=== PATIENT | female | born 1990 | race Caucasian/White ===

== ENCOUNTER 2020-02-06 16:29 | Outpatient (REF) | payer OTHER, SELFPAY ==
[2020-02-06 17:45] LABS: COVID-19 Test Negative (Negative)
== END 2020-02-06 16:30 | disposition home or self-care (01) ==
LOC: HO.LAB 16:29
PROVIDERS: Visit Provider Internal Medicine
DX: Z20.828 Contact with and (suspected) exposure to other viral communicable diseases (principal)
CPT/HCPCS: 87635

== ENCOUNTER 2020-03-09 13:51 | Outpatient (REF) | payer OTHER, SELFPAY ==
[2020-03-09 14:35] LABS: COVID-19 Test Negative (Negative); IDNOW Serial# 55D5AD1C
== END 2020-03-09 13:52 | disposition home or self-care (01) ==
LOC: HO.EMPCOV 13:51
PROVIDERS: Visit Provider Internal Medicine
DX: Z20.828 Contact with and (suspected) exposure to other viral communicable diseases (principal)
CPT/HCPCS: 87635; C9803

== ENCOUNTER 2020-03-17 07:46 | Outpatient (REF) | payer OTHER, SELFPAY ==
[2020-03-17 08:18] LABS: COVID-19 Test Negative (Negative)
== END 2020-03-17 07:47 | disposition home or self-care (01) ==
LOC: HO.LAB 07:46
PROVIDERS: Visit Provider Internal Medicine
DX: Z20.828 Contact with and (suspected) exposure to other viral communicable diseases (principal)
CPT/HCPCS: 87635; C9803

== ENCOUNTER 2020-07-16 09:44 | Outpatient (REF) | payer OTHER, SELFPAY ==
[2020-07-16 10:23] LABS: COVID-19 Test Negative (Negative); IDNOW Serial# 08D9AD1C
== END 2020-07-16 09:45 | disposition home or self-care (01) ==
LOC: HO.EMPCOV 09:44
PROVIDERS: Visit Provider Internal Medicine
DX: Z20.822 Contact with and (suspected) exposure to COVID-19 (principal)
CPT/HCPCS: 36415; 87635; C9803

== ENCOUNTER 2021-02-24 09:44 | Outpatient (REF) | payer OTHER, SELFPAY ==
[2021-02-24 11:43] LABS: Baso%MD 0.2 %; Eos%MD 1.5 %; Hematocrit 45.1 % (37.0-47.0); Hemoglobin 15.4 g/dl (12.0-16.0); IG%MD 0.2 %; Mean Corpuscular HGB Conc 34.1 g/dl (31.0-35.0); Mean Corpuscular Hemoglobin 31.6 pg (27.0-33.0); Mean Corpuscular Volume 92.4 fL (80.0-98.0); Mean Platelet Volume 9.5 fL (9.4-12.3); Mono%MD 9.3 %; Neut%MD 62.8 %; Platelet Count 302 X10*3/uL (160-400); Red Blood Count 4.88 X10*6/uL (4.20-5.50); Red Cell Distribution Width 12.3 % (11.0-16.0); White Blood Count 5.3 X10*3/uL (4.8-10.8)
[2021-02-24 12:17] LABS: HBS Num1 140.53 mIU/mL (0-7.99); HBc Num1 0.08 S/CO (0.00-0.79); Hepatitis B Core Antibody Nonreactive (Nonreactive); ~Hepatitis B Surface Antibody REACTIVE (Nonreactive)
[2021-02-24 12:23] LABS: HBsAGNum1 0.18 S/CO (0.00-0.99); Hepatitis A Antibody IgM 0.11 Index (0-0.79); Hepatitis B Surface Antigen Negative (Negative); ~HepC Num1 0.08 S/CO (0.00-0.79); ~Hepatitis A Antibody IgM Nonreactive (Nonreactive); ~Hepatitis C Antibody Nonreactive (Nonreactive)
[2021-02-24 12:24] LABS: Alanine Aminotransferase 124 U/L (0-31); Albumin Level 4.7 g/dL (3.5-5.0); Alkaline Phosphatase 86 U/L (39-117); Anion Gap 14 (12-20); Aspartate Amino Transferase 128 U/L (5-31); Band Neutrophils Percent 2 % (3-5); Basophils Abs Manual 0.1 X10*3/uL (0.0-0.2); Basophils Percent Manual 1 % (0-2); Bilirubin Total 0.4 mg/dL (0.0-1.0); Blood Urea Nitrogen 12 mg/dL (9-16); Calcium 9.4 mg/dL (8.4-10.2); Carbon Dioxide 23 mmol/L (22-29); Chloride 105 mmol/L (96-108); Eosinophils Absolute Manual 0.1 X10*3/uL (0.0-0.4); Eosinophils Percent Manual 1 % (0-4); Estimated Glomerular Filt Rate 57; Glucose Random 88 mg/dL (60-115); Lymphocytes Absolute Manual 1.1 X10*3/uL (1.2-4.9); Lymphocytes Percent Manual 21 % (20-40); Monocytes Absolute Manual 0.4 X10*3/uL (0.1-1.2); Monocytes Percent Manual 8 % (2-11); Neutrophils Absolute Manual 3.7 X10*3/uL (2.0-8.3); Neutrophils Percent Manual 67 % (45-73); Potassium 4.3 mmol/L (3.3-5.1); Sodium 138 mmol/L (135-145)
[2021-02-24 12:25] LABS: Platelet Estimate NORMAL (NORMAL); Platelet Morphology Comment NORMAL; RBC Morphology NORMAL
[2021-02-24 15:01] LABS: CDiff Gene PCR NEGATIVE (Negative)
== END 2021-02-24 09:45 | disposition home or self-care (01) ==
LOC: HO.HMGCLDS 09:44
PROVIDERS: PCP Internal Medicine; Visit Provider Physician Assistant Medical
DX: R19.7 Diarrhea, unspecified (principal); Z20.822 Contact with and (suspected) exposure to COVID-19
CPT/HCPCS: 36415; 80053; 85007; 85027; 86704; 86706; 86709; 86803; 87045; 87046; 87329; 87340; 87493

== ENCOUNTER 2021-06-11 20:15 | Emergency (ER) | payer OTHER, SELFPAY ==
[2021-06-11 20:19] VITALS: BP 134/84; PULSE 87; RESP 16; TEMP 36.7; O2SAT 99; BMI 25.0
[2021-06-11 20:46] LABS: Basophils Absolute Auto 0.1 X10*3/uL (0.0-0.2); Basophils Percent Auto 0.5 % (0-2); Eosinophils Absolute Auto 0.3 X10*3/uL (0.0-0.4); Eosinophils Percent Auto 2.9 % (0-4); Hematocrit 36.8 % (37.0-47.0); Hemoglobin 12.8 g/dl (12.0-16.0); Imm Gran Abs Auto 0.02 X10*3/uL (0.00-0.03); Imm Gran Pct Auto 0.2 % (0.0-0.4); Lymphocytes Absolute Auto 2.6 X10*3/uL (1.2-4.9); Lymphocytes Percent Auto 27.2 % (20-40); MANUAL DIFF FLAG NO; Mean Corpuscular HGB Conc 34.8 g/dl (31.0-35.0); Mean Corpuscular Hemoglobin 32.3 pg (27.0-33.0); Mean Corpuscular Volume 92.9 fL (80.0-98.0); Mean Platelet Volume 8.9 fL (9.4-12.3); Monocytes Absolute Auto 0.7 X10*3/uL (0.1-1.2); Monocytes Percent Auto 7.2 % (2-11); Neutrophils Absolute Auto 5.9 x10*3/uL (2.0-8.3); Platelet Count 289 X10*3/uL (160-400); Red Blood Count 3.96 X10*6/uL (4.20-5.50); Red Cell Distribution Width 11.9 % (11.0-16.0); White Blood Count 9.5 X10*3/uL (4.8-10.8)
[2021-06-11 21:04] LABS: Anion Gap 13 (12-20); Blood Urea Nitrogen 11 mg/dL (9-16); Calcium 9.5 mg/dL (8.4-10.2); Carbon Dioxide 24 mmol/L (22-29); Chloride 104 mmol/L (96-108); Creatinine Clr Calc Pharmacy 99.4; Estimated Glomerular Filt Rate > 60; Glucose Random 95 mg/dL (60-115); Potassium 3.6 mmol/L (3.3-5.1); Sodium 137 mmol/L (135-145)
[2021-06-11 21:37] LABS: Appearance Urine CLEAR; Color Urine YELLOW; Glucose Urine UA NEG (NEG); Leukocyte Esterase Urine NEG (NEG); Nitrite Urine NEG (NEG); Specific Gravity - Urine 1.015 (1.005-1.025); Urine Blood NEG (NEG); Urine Ketones NEG (NEG); Urine Protein NEG (NEG-TRACE)
[2021-06-12 00:22] LABS: OBS Int Ctl Valid YES; OBS1 NEGATIVE (NEGATIVE)
--- NOTE | 2021-06-12 00:45 | ED_ITS ---
HPI - GI Bleed General Chief complaint: GI Bleed Stated complaint: rectal bleed Time Seen by Provider: 06/12/21 00:11 Source: patient and family () Mode of arrival: ambulatory History of Present Illness HPI Narrative: 31-year-old female gravid, 7 weeks and 2 days, who presents with rectal bleeding after dinner this evening. Patient denies any pain with the passage of stool and blood and at 1st thought that she might be having an SAB but then on further investigation she noted that it was coming from her bottom. Patient states that she has previously had similar problems and underwent a colonoscopy by Dr. Diallo. At that time the colonoscopy was negative for acute findings and no further intervention was completed for suspected hemorrhoids. Patient states that since March she has had intermittent bleeding with defecation, but it has self resolved and she has never had staining or accidents within her underwear pants. Patient states that the events this evening was associated with a little bit of cramping in the lower abdomen and this has completely resolved. Otherwise she denies any vaginal bleeding. Related Data Home Medications Medication Instructions Recorded Confirmed acyclovir 400 mg tablet 400 mg PO DAILY 02/24/21 levonorgestrel-ethinyl estradiol 1 tab PO DAILY 02/24/21 0.1 mg-20 mcg tablet (Larissia) Allergies Allergy/AdvReac Type Severity Reaction Status Date / Time clindamycin [CLINDAMYCIN] Allergy Intermediate HIVES Verified 02/24/21 08:45 Clindamycin HCl Allergy Unknown hives Uncoded 02/24/21 08:45 Review of Systems Review of Systems: Pertinent positives and negatives as stated in HPI 10 point review of systems is otherwise negative. ON LICENSE OF [facility] Past Medical History Source: nursing notes reviewed Medical History No known health problems Social History Social History Patient Tobacco Use Status: Never used Tobacco Advance Directives: No Patient : Yes Physical Exam Vital Signs: Vital Signs: Last Vital Signs Temp 98.0 F 06/11/21 20:19 Pulse 87 06/11/21 20:19 Resp 16 06/11/21 20:19 BP 134/84 06/11/21 20:19 Pulse Ox 99 06/11/21 20:19 BMI result Body Mass Index 25.0 VITAL SIGNS: Reviewed. GENERAL: Well developed, well nourished, in no acute distress. HEAD: Normocephalic/atraumatic EYES: PERRLA, EOMI EARS: Ext canals without abnormality OROPHARYNX: no oral lesions noted, posterior pharynx clear LUNGS: Normal breath sounds. No adventitious sounds or accessory muscle use. SpO2<99> CARDIOVASCULAR: Regular rate and rhythm without noted murmurs ABDOMEN: Soft, non-tender, non-distended with bowel sounds. BEAN: Noninflamed external hemorrhoids noted at the 6 o'clock position, no stigmata of bleeding noted, small amount of soft brown stool in the rectal vault and no palpated internal hemorrhoids, rectal tone intact MUSCULOSKELETAL: No tenderness, deformities, or effusions noted on gross inspection. EXTREMITIES: No cyanosis, clubbing or edema. SKIN: Inspection of the skin reveals no rashes NEUROLOGIC: Alert and oriented x 4. Strength and sensation to light touch were grossly intact x 4. Course Course Course Narrative: 31-year-old female with history and clinical presentation consistent with hemorrhoidal bleeding, on review of all investigations there are no acute findings as hemoglobin and hematocrit are within normal limits patient is otherwise asymptomatic and the stool guaiac was noted to be negative. Patient is currently not experiencing any pain. And on review of all vital signs there are no objective findings to suggest anemia. Abdomen is otherwise benign. And will provide the patient with a referral to see Gastroenterology. MDM - GI Bleed Lab Data Result diagrams: 06/11/21 20:36 06/11/21 20:36 Labs: Lab Results 06/11/21 06/11/21 06/11/21 Range/Units 20:36 20:36 21:30 WBC 9.5 (4.8-10.8) X10*3/uL RBC 3.96 L (4.20-5.50) X10*6/uL Hgb 12.8 (12.0-16.0) g/dl Hct 36.8 L (37.0-47.0) % MCV 92.9 (80.0-98.0) fL MCH 32.3 (27.0-33.0) pg MCHC 34.8 (31.0-35.0) g/dl RDW 11.9 (11.0-16.0) % Plt Count 289 (160-400) X10*3/uL MPV 8.9 L (9.4-12.3) fL Immature Gran % (Auto) 0.2 (0.0-0.4) % Neut % (Auto) 62.0 (45-73) % Lymph % (Auto) 27.2 (20-40) % Oliver % (Auto) 7.2 (2-11) % Eos % (Auto) 2.9 (0-4) % Baso % (Auto) 0.5 (0-2) % Lymph # (Auto) 2.6 (1.2-4.9) X10*3/uL Oliver # (Auto) 0.7 (0.1-1.2) X10*3/uL Eos # (Auto) 0.3 (0.0-0.4) X10*3/uL Baso # (Auto) 0.1 (0.0-0.2) X10*3/uL Abs Immat Gran (auto) 0.02 (0.00-0.03) X10*3/uL Absolute Neuts (auto) 5.9 (2.0-8.3) x10*3/uL Absolute Nucleated RBC 0.000 (0.0-0.012) X10*3/uL Nucleated RBC % (auto) 0.0 (0.0-0.2) /100WBC Sodium 137 (135-145) mmol/L Potassium 3.6 (3.3-5.1) mmol/L Chloride 104 (96-108) mmol/L Carbon Dioxide 24 (22-29) mmol/L Anion Gap 13 (12-20) BUN 11 (9-16) mg/dL Creatinine 0.79 (0.5-1.4) mg/dL Estim Creat Clear Calc 99.4 Estimated GFR > 60 Random Glucose 95 (60-115) mg/dL Calcium 9.5 (8.4-10.2) mg/dL Beta HCG, Quant 95693 mIU/mL Urine Color YELLOW Urine Appearance CLEAR Urine pH 6.0 (5.0-8.0) Ur Specific [place] 1.015 (1.005-1.025) Urine Protein NEG (NEG-TRACE) MG/DL Urine Glucose (UA) NEG (NEG) MG/DL Urine Ketones NEG (NEG) MG/DL Urine Blood NEG (NEG) Urine Nitrite NEG (NEG) Ur Leukocyte Esterase NEG (NEG) Stool Occult Blood (NEGATIVE) 06/12/21 Range/Units 00:16 WBC (4.8-10.8) X10*3/uL RBC (4.20-5.50) X10*6/uL Hgb (12.0-16.0) g/dl Hct (37.0-47.0) % MCV (80.0-98.0) fL MCH (27.0-33.0) pg MCHC (31.0-35.0) g/dl RDW (11.0-16.0) % Plt Count (160-400) X10*3/uL MPV (9.4-12.3) fL Immature Gran % (Auto) (0.0-0.4) % Neut % (Auto) (45-73) % Lymph % (Auto) (20-40) % Oliver % (Auto) (2-11) % Eos % (Auto) (0-4) % Baso % (Auto) (0-2) % Lymph # (Auto) (1.2-4.9) X10*3/uL Oliver # (Auto) (0.1-1.2) X10*3/uL Eos # (Auto) (0.0-0.4) X10*3/uL Baso # (Auto) (0.0-0.2) X10*3/uL Abs Immat Gran (auto) (0.00-0.03) X10*3/uL Absolute Neuts (auto) (2.0-8.3) x10*3/uL Absolute Nucleated RBC (0.0-0.012) X10*3/uL Nucleated RBC % (auto) (0.0-0.2) /100WBC Sodium (135-145) mmol/L Potassium (3.3-5.1) mmol/L Chloride (96-108) mmol/L Carbon Dioxide (22-29) mmol/L Anion Gap (12-20) BUN (9-16) mg/dL Creatinine (0.5-1.4) mg/dL Estim Creat Clear Calc Estimated GFR Random Glucose (60-115) mg/dL Calcium (8.4-10.2) mg/dL Beta HCG, Quant mIU/mL Urine Color Urine Appearance Urine pH (5.0-8.0) Ur Specific [place] (1.005-1.025) Urine Protein (NEG-TRACE) MG/DL Urine Glucose (UA) (NEG) MG/DL Urine Ketones (NEG) MG/DL Urine Blood (NEG) Urine Nitrite (NEG) Ur Leukocyte Esterase (NEG) Stool Occult Blood NEGATIVE (NEGATIVE) Discharge Plan Discharge Clinical Impression: Rectal bleed Patient Disposition: Home, Self-Care Instructions: Rectal Bleeding (ED) Additional Instructions: 1. You have been provided with referral see GI. Return to the ER for worsening symptoms. Prescriptions: No Action levonorgestrel-ethinyl estrad [Larissia] 0.1-20 mg-mcg tablet 1 tab PO DAILY 0RF acyclovir 400 mg tablet 400 mg PO DAILY 0RF Referrals: Sergio Obregon MD [Primary Care Provider] - 2 days Alejo Diallo [Physician] - 2 days (Transient episode of rectal bleeding, has history)
--- NOTE | 2021-06-12 01:06 | PC.NURSE ---
I assumed care of this pt upon her arrival to bed 15. The pt states she came to the ED for evaluation of bright red blood in the toilet bowl when she had a bowel movement. She admits to some abdominal cramping. She denies fevers, nausea, vomiting, chest pain, shortness of breath. Skin pale/warm/dry. Family at the bedside. At this time she is discharged. She verbalized an understanding of all DC orders and she ambulated out of the ED independently and with steady gait.
== END 2021-06-12 01:09 | disposition home or self-care (01) ==
PROVIDERS: Emergency Provider Student in an Organized Health Care Education/Training Program; PCP Internal Medicine
DX: K62.5 Hemorrhage of anus and rectum (principal); Z79.899 Other long term (current) drug therapy
CPT/HCPCS: 36415; 80048; 81003; 82272; 84702; 85025; 99283

== ENCOUNTER 2021-07-02 08:01 | Outpatient (REF) | payer OTHER, SELFPAY ==
[2021-07-02 11:25] LABS: MANUAL DIFF FLAG NO
[2021-07-02 11:30] LABS: Basophils Percent Auto 0.6 % (0-2); Eosinophils Absolute Auto 0.1 X10*3/uL (0.0-0.4); Eosinophils Percent Auto 2.1 % (0-4); Hematocrit 37.3 % (37.0-47.0); Hemoglobin 12.4 g/dl (12.0-16.0); Imm Gran Abs Auto 0.02 X10*3/uL (0.00-0.03); Imm Gran Pct Auto 0.3 % (0.0-0.4); Lymphocytes Absolute Auto 1.4 X10*3/uL (1.2-4.9); Lymphocytes Percent Auto 21.9 % (20-40); Mean Corpuscular HGB Conc 33.2 g/dl (31.0-35.0); Mean Corpuscular Volume 96.1 fL (80.0-98.0); Mean Platelet Volume 9.6 fL (9.4-12.3); Monocytes Absolute Auto 0.5 X10*3/uL (0.1-1.2); Monocytes Percent Auto 7.4 % (2-11); Neutrophils Absolute Auto 4.2 x10*3/uL (2.0-8.3); Neutrophils Percent Auto 67.7 % (45-73); Platelet Count 256 X10*3/uL (160-400); Red Blood Count 3.88 X10*6/uL (4.20-5.50); Red Cell Distribution Width 12.2 % (11.0-16.0); White Blood Count 6.3 X10*3/uL (4.8-10.8)
[2021-07-02 12:14] LABS: Syphilis Screen Nonreactive (Nonreactive)
[2021-07-04 05:16] LABS: Rubella IgG Antibody 1.63 Index
[2021-07-05 04:13] LABS: HBsAGNum1 0.36 S/CO (0.00-0.99); Hepatitis B Surface Antigen Negative (Negative)
[2021-07-05 04:22] LABS: HIV AB/AG Nonreactive (Nonreactive); HIV Num 1 0.05 S/CO (0.00-0.99); ~HepC Num1 0.07 S/CO (0.00-0.79); ~Hepatitis C Antibody Nonreactive (Nonreactive)
== END 2021-07-02 08:02 | disposition home or self-care (01) ==
LOC: HO.HMGCLDS 08:01
PROVIDERS: Visit Provider Obstetrics & Gynecology
DX: Z34.91 Encounter for supervision of normal pregnancy, unspecified, first trimester (principal)
CPT/HCPCS: 36415; 85025; 86762; 86780; 86787; 86803; 86850; 86900; 86901; 87086; 87340; 87389

== ENCOUNTER 2021-07-12 16:44 | Outpatient (REF) | payer OTHER, SELFPAY ==
[2021-07-12 18:02] LABS: Amphetamine Screen Urine Not Detected (Not Detect); Barbiturates, Urine Not Detected (Not Detect); Benzodiazepines Screen Urine Not Detected (Not Detect); Cannabinoid Screen Urine Not Detected (Not Detect); Cocaine Screen Urine Not Detected (Not Detect); Fentanyl, urine Not Detected (Not Detect); Opiate Screen Urine Not Detected (Not Detect); Phencyclidine Screen Urine Not Detected (Not Detect)
== END 2021-07-12 16:45 | disposition home or self-care (01) ==
LOC: HO.LAB 16:44
PROVIDERS: PCP Internal Medicine; Visit Provider Obstetrics & Gynecology
DX: Z34.01 Encounter for supervision of normal first pregnancy, first trimester (principal); Z36.9 Encounter for antenatal screening, unspecified
CPT/HCPCS: 80307; 86850; 86900; 86901

== ENCOUNTER 2021-07-16 10:50 | Outpatient (REF) | payer OTHER, SELFPAY ==
--- NOTE | ~2021-07-16 | US_ITS ---
EXAMINATION: OBSTETRICAL ULTRASOUND, FIRST TRIMESTER HISTORY: 31-year-old at 12.1 weeks of gestation NT screening COMPARISON: None in this TECHNIQUE: Real time transabdominal imaging with color and M-mode Doppler. FINDINGS: A single, live IUP CRL of 63.0 mm c/w 12.5wks is noted. Heart Rate: 144 beats per minute. Normal yolk sac seen. NT was 1.8.mm. NB Present The embryo appears sonographically wnl for this GA. Both maternal ovaries are seen and appear normal. GESTATIONAL AGE: 1. Established GA: 12.1 wks 2. GA from [facility]: 12.5 wks ESTIMATED DATE OF DELIVERY: 1. Established BALJIT: 01/27/2022 2. BALJIT from [facility]: 01/23/2022 US/US OB 1T nuc measure IMPRESSION: 1. A single live IUP 2. Size equals dates 3. NT of 1.8 mm MFM Consultation: I reviewed the ultrasound findings along with significance of NT measurement. The NT of less than 3mm is generally reassuring. However, the sensitivity for T21 detection is only 60%. I reviewed the availability of serum aneuploidy screening which includes cell-free DNA and placental protein based tests. I discussed the sensitivity, false-positive rate, and other limitations associated with each test. I also reviewed the availability of invasive diagnostic tests that are associated small but definite risk of miscarriage. We also reviewed the differences between screening tests and diagnostic tests. After our discussion, she opted for the First trimester screening that is based on cell-free DNA or non-invasive testing (NIPT). The result will be faxed to your office in approximately 7 days. A follow up at 18 weeks for survey has been scheduled. Thank you very much for this referral. Total time 30 minutes. The time spent was devoted to counseling the patient about the disease and diagnosis, coordinating care including reviewing her records, pertinent lab data and studies, as well as discussing diagnostic evaluation and workup, plan therapeutic interventions and future disposition of care. This includes any additional research needed to obtain further information in formulating the plan of care of this patient. This note was generated with a voice recognition program. Please excuse any errors which may have been overlooked during my review of this note. Sometimes these errors may affect the content or meaning of a given sentence.
== END 2021-07-16 10:51 | disposition home or self-care (01) ==
LOC: HO.US 10:50
PROVIDERS: Visit Provider Obstetrics & Gynecology
DX: Z34.91 Encounter for supervision of normal pregnancy, unspecified, first trimester (principal); Z3A.12 12 weeks gestation of pregnancy
CPT/HCPCS: 76813

== ENCOUNTER 2021-09-10 12:12 | Outpatient (REF) | payer OTHER, SELFPAY ==
--- NOTE | ~2021-09-10 | US_ITS ---
EXAMINATION: US OBSTETRICAL CLINICAL INFORMATION: 31-year-old at the 20.1 weeks of gestation Screening for anomaly COMPARISON: 07/16/2021 TECHNIQUE: Real-time transabdominal ultrasound was performed using C1-5 megahertz transducer. FINDINGS: A single, active, fetus is seen in breech presentation. The placenta is posterior without previa, and the amniotic fluid volume is wnl. MEASUREMENTS: 1. Biparietal Diameter: 4.7 cm; 20.2 wks 2. Occipital Frontal Diameter: 6.1 cm 3. Head Circumference: 17.5 cm; 20.1 wks 4. Abdominal Circumference: 14.5 cm; 19.6 wks 5. Femur Length: 3.1 cm; 19.6 wks 6. Humerus Length: 3.1 cm; 20.2 wks 7. Tibia Length: 2.6 cm; 19.2 wks 8. Ulna Length: 2.8 cm; 20.1 wks 9. Lateral ventricle: 0.7 cm 10. Cerebellum: 2.0 cm; 20.5 wks 11. Cisterna Magna: 0.2 cm 12. Nuchal Fold: 3.3 mm 13. Heart Rate: 140 beats per minute Rt ovary: normal Lt ovary: normal Cervical length 4.0 cm on T/A. GESTATIONAL AGE: 1. Established GA: 20.1 wks 2. GA from [facility]: 20.1 wks ESTIMATED DATE OF DELIVERY: 1. Established BALJIT: 01/27/2022 2. BALJIT from [facility]: 01/27/2022 ANATOMY: The visualized anatomy includes but not limited to: 1. Cranium: Normal 2. Intracranial anatomy: cavum septum pellucidi, lateral ventricles, choroid plexus, cerebellum, posterior fossa, third and fourth ventricles. 3. face: orbits, lip/palate, profile, nasal bone 4. Heart: four-chamber view of the heart, ventricular septum, foramen ovale, pulmonary vein, left and right outflow tracts, three-vessel view, 3 vessel trachea view, aortic and ductal arches, situs.. 5. Diaphragm: Normal 6. Abdominal wall: Normal 7. Cord Insertion: Normal 8. Spine: Cervical, thoracic, lumbar, sacral. 9. Stomach: Normal size and shape 10. Right Kidney: Normal 11. Left Kidney: Normal 12. 3 vessel cord: Normal 13. Upper extremity: Open hands, fifth digit. 14. Lower extremity: Tibia, fibula, bilateral feet. 15. Bladder: Normal 16. Genitalia: Female, patient not aware US/US OB /maternal detail IMPRESSION: 1. Single, living, intrauterine with appropriate biometry. 2. Normal survey DISCUSSION: I reviewed today's ultrasound findings. We discussed the limitations of ultrasound in diagnosing aneuploidy and other congenital abnormalities. I reviewed the differences between screening test and diagnostic test. Amniocentesis was discussed and declined. She was informed that the baseline incidence of congenital abnormalities is approximately 3-5%. Not all these conditions are diagnosable in utero. RECOMMENDATIONS: 1. Follow-up when necessary. Thank you for allowing me to participate in her care. Total time 30 minutes. The time spent was devoted to counseling the patient about the disease and diagnosis, coordinating care including reviewing her records, pertinent lab data and studies, as well as discussing diagnostic evaluation and workup, plan therapeutic interventions and future disposition of care. This includes any additional research needed to obtain further information in formulating the plan of care of this patient. This note was generated with a voice recognition program. Please excuse any errors which may have been overlooked during my review of this note. Sometimes these errors may affect the content or meaning of a given sentence.
== END 2021-09-10 12:13 | disposition home or self-care (01) ==
LOC: HO.US 12:12
PROVIDERS: Visit Provider Obstetrics & Gynecology
DX: O35.9XX0 Maternal care for (suspected) fetal abnormality and damage, unspecified, not applicable or unspecified (principal); Z3A.20 20 weeks gestation of pregnancy
CPT/HCPCS: 76811

== ENCOUNTER 2021-12-01 09:24 | Outpatient (REF) | payer OTHER, SELFPAY ==
[2021-12-01 11:16] LABS: MANUAL DIFF FLAG NO
[2021-12-01 11:21] LABS: Appearance Urine Clear; Color Urine Yellow; Glucose Urine UA Negative (Negative); Leukocyte Esterase Urine Trace (Negative); Nitrite Urine Negative (Negative); PH 6.5 (5.0-8.0); Urine Blood Negative (Negative); Urine Ketones Negative (Negative); Urine Protein Negative (Neg-Trace)
[2021-12-01 11:24] LABS: Bacteria Urine None Seen (None Seen); Hyaline Casts Urine 0-2 /LPF (0-2); RBC Urine 0-2 /HPF (0-2); Squamous Epithelial Cell Urine 0-2 /HPF (0-2); WBC Urine 0-5 /HPF (0-5)
[2021-12-01 11:27] LABS: Basophils Percent Auto 0.4 % (0-2); Eosinophils Absolute Auto 0.2 X10*3/uL (0.0-0.4); Eosinophils Percent Auto 1.6 % (0-4); Hematocrit 34.6 % (37.0-47.0); Hemoglobin 11.5 g/dl (12.0-16.0); Imm Gran Abs Auto 0.06 X10*3/uL (0.00-0.03); Imm Gran Pct Auto 0.5 % (0.0-0.4); Lymphocytes Absolute Auto 1.8 X10*3/uL (1.2-4.9); Lymphocytes Percent Auto 16.7 % (20-40); Mean Corpuscular HGB Conc 33.2 g/dl (31.0-35.0); Mean Corpuscular Hemoglobin 31.9 pg (27.0-33.0); Mean Corpuscular Volume 96.1 fL (80.0-98.0); Mean Platelet Volume 9.6 fL (9.4-12.3); Monocytes Absolute Auto 0.8 X10*3/uL (0.1-1.2); Monocytes Percent Auto 7.7 % (2-11); Neutrophils Percent Auto 73.1 % (45-73); Platelet Count 234 X10*3/uL (160-400); Red Cell Distribution Width 13.5 % (11.0-16.0); White Blood Count 10.9 X10*3/uL (4.8-10.8)
[2021-12-01 12:19] LABS: Alanine Aminotransferase 15 U/L (0-31); Albumin Level 3.6 g/dL (3.5-5.0); Alkaline Phosphatase 102 U/L (39-117); Anion Gap 15 (12-20); Aspartate Amino Transferase 19 U/L (5-31); Bilirubin Total 0.4 mg/dL (0.0-1.0); Blood Urea Nitrogen 9 mg/dL (9-16); Calcium 9.1 mg/dL (8.4-10.2); Carbon Dioxide 24 mmol/L (22-29); Chloride 102 mmol/L (96-108); Cholesterol 221 mg/dL; Estimated Glomerular Filt Rate > 60; Glucose Fasting 73 mg/dL (60-99); HDL Cholesterol 51 mg/dL; Potassium 4.2 mmol/L (3.3-5.1); Sodium 137 mmol/L (135-145); Total Protein 6.5 g/dL (6.5-8.0); Triglycerides 411 mg/dL
[2021-12-01 12:24] LABS: TSH reflex Free T4 1.08 uIU/mL (0.32-4.0)
== END 2021-12-01 09:25 | disposition home or self-care (01) ==
LOC: HO.HMGCLDS 09:24
PROVIDERS: PCP Nurse Practitioner Family; Visit Provider Nurse Practitioner Family
DX: Z00.00 Encounter for general adult medical examination without abnormal findings (principal)
CPT/HCPCS: 36415; 80053; 80061; 81001; 84443; 85025

== ENCOUNTER 2022-07-22 09:31 | Outpatient (REF) | payer OTHER, SELFPAY ==
[2022-07-22 11:17] LABS: MANUAL DIFF FLAG NO
[2022-07-22 11:55] LABS: Appearance Urine Cloudy; Color Urine Yellow; Glucose Urine UA Negative (Negative); Leukocyte Esterase Urine Negative (Negative); Nitrite Urine Negative (Negative); PH 5.5 (5.0-9.0); Specific Gravity - Urine >= 1.030 (1.005-1.025); UMIC TRIGGER UACC YES; Urine Blood Negative (Negative); Urine Ketones Negative (Negative); Urine Protein 30 (1+) mg/dL (Neg-Trace)
[2022-07-22 12:02] LABS: Bacteria Urine None Seen (None Seen); Hyaline Casts Urine 0-2 /LPF (0-2); RBC Urine 0-2 /HPF (0-2); Squamous Epithelial Cell Urine 0-2 /HPF (0-2); WBC Urine 0-5 /HPF (0-5)
[2022-07-22 12:02] LABS: Basophils Absolute Auto 0.1 X10*3/uL (0.0-0.2); Basophils Percent Auto 0.9 % (0-2); Eosinophils Absolute Auto 0.2 X10*3/uL (0.0-0.4); Eosinophils Percent Auto 2.6 % (0-4); Hematocrit 40.6 % (37.0-47.0); Hemoglobin 13.8 g/dl (12.0-16.0); Imm Gran Abs Auto 0.01 X10*3/uL (0.00-0.03); Imm Gran Pct Auto 0.1 % (0.0-0.4); Lymphocytes Absolute Auto 2.3 X10*3/uL (1.2-4.9); Lymphocytes Percent Auto 33.2 % (20-40); Mean Corpuscular Hemoglobin 30.9 pg (27.0-33.0); Mean Corpuscular Volume 90.8 fL (80.0-98.0); Mean Platelet Volume 9.6 fL (9.4-12.3); Monocytes Absolute Auto 0.5 X10*3/uL (0.1-1.2); Monocytes Percent Auto 7.3 % (2-11); Neutrophils Absolute Auto 3.8 x10*3/uL (2.0-8.3); Neutrophils Percent Auto 55.9 % (45-73); Platelet Count 273 X10*3/uL (160-400); Red Blood Count 4.47 X10*6/uL (4.20-5.50); Red Cell Distribution Width 12.2 % (11.0-16.0); White Blood Count 6.8 X10*3/uL (4.8-10.8)
[2022-07-22 12:21] LABS: Cholesterol 220 mg/dL; HDL Cholesterol 45 mg/dL; LDL Cholesterol Calculated 158 mg/dl; Triglycerides 88 mg/dL
== END 2022-07-22 09:32 | disposition home or self-care (01) ==
LOC: HO.HMGCLDS 09:31
PROVIDERS: PCP Nurse Practitioner Family; Visit Provider Nurse Practitioner Family
DX: D72.829 Elevated white blood cell count, unspecified (principal); E78.5 Hyperlipidemia, unspecified
CPT/HCPCS: 36415; 80061; 81001; 85025

== ENCOUNTER 2023-02-15 14:26 | Outpatient (AMB) | payer OTHER, SELFPAY ==
--- NOTE | 2023-02-15 16:00 | MHC.PC.OV ---
Vital Signs 02/15/23 16:02 Height 5 ft 7 in Weight 150 lb BMI 23.5 BP 142/76 H Blood Pressure Location Rt brachial Position Sitting Pulse 92 Pulse Source Pulse Oximeter Pulse Oximetry (%) 98 Oxygen Delivery Method Room Air Intake Visit Reasons: Adult CPE Female 18-49 Allergies clindamycin [CLINDAMYCIN] Allergy (Intermediate, Verified 02/15/23 16:03) HIVES Clindamycin HCl Allergy (Unknown, Uncoded 11/30/21 16:26) hives Medication List - Last Reconciled 02/15/23 by BAILEE Smith acyclovir 400 mg PO DAILY ezetimibe 10 mg PO DAILY Tobacco use date assessed: 02/15/23 Dental Screening Dental Screen Date: 02/15/23 Did you have a dental visit in the last 12 months?: Yes Did you have a dental problem in the last 6 months where you did not have access to dental care?: No Was dental information given to patient?: Patient has dentist HPI Encounter for routine adult health examination HPI Details Pt is here for a PE. Will order labs. 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 Will have pt take her blood pressure at home and record readings. [facility] Medical History No known health problems Family History Maternal Grandmother Mental health disorder Social History Housing: House Patient Tobacco Use Status: Never used Tobacco e-Cigarette/Vaping Use: Never Used Second Hand Smoke Exposure: No service: No Current occupational status: employed Current occupation: [employer] [place] Current occupational exposures/hazards: No Cognitive needs: No Hearing needs: No Vision needs: No Questionnaire Thrive Questionnaire Date Thrive assessed: 11/30/21 AUDIT C Alcohol Use Questionnaire (AUDIT-C) 1. How often do you have a drink containing alcohol?: 2-4 times a month 2. How many drinks containing alcohol do you have on a typical day when you are drinking?: 1 or 2 3. How often do you have six or more drinks on one occasion?: Never Total Score: 2 Score Reviewed/Action Taken: Yes FRANCISCO-7 AMB Questionnaire FRANCISCO-7 Date FRANCISCO - 7 assessed: 11/30/21 Source: Developed by Drs. Alejo Varghese, Susan Perkins, Keenan Dunn and colleagues, with an educational maribel from [employer]. Review of Systems Const Denies chills and Denies fever(s) Eyes Denies blurry vision ENT Denies vertigo, Denies dizziness and Denies sore throat Card Denies chest pain at rest, Denies chest pain with activity, Denies diaphoresis, Denies dyspnea and Denies dyspnea on exertion Resp Denies cough, Denies dyspnea, Denies dyspnea on exertion and Denies wheezing GI Denies abdominal pain, Denies melena, Reports hematochezia, Denies constipation, Denies diarrhea and Denies loose stools Denies hematuria Musc Denies numbness and Denies tingling Skin/Breast Denies lesions Neuro Denies vertigo, Denies dizziness, Denies numbness and Denies tingling Psych Denies anxiety, Denies depression, Denies homicidal ideation, Denies suicidal ideation and Denies other (substance abuse) Aller/Immun Denies wheezing Physical exam (Primary Care) Vital Signs: Last Vital Signs Pulse 92 02/15/23 16:02 BP 142/76 H 02/15/23 16:02 Pulse Ox 98 02/15/23 16:02 Oxygen Delivery Method Room Air 02/15/23 16:02 BMI result Body Mass Index 23.5 Tobacco/Smoking Status: Tobacco use Status Tobacco use date assessed 02/15/23 02/15/23 16:04 Patient Tobacco Use Status Never used Tobacco 02/15/23 16:04 e-Cigarette/Vaping Use Never Used 02/15/23 16:04 Thrive Assessment: Date of Thrive Assessment Date Thrive assessed 11/30/21 02/15/23 16:04 Const General: cooperative Nutritional Appearance: well nourished Orientation/consciousness: patient oriented x3 HENMT Head: Yes normal to inspection, Yes normocephalic and Yes atraumatic Ears: TM's normal bilaterally Eyes General: appearance normal, both eyes and all related structures Alignment and Position: alignment normal and position normal Neck Neck: Yes normal visual inspection and Yes no lymphadenopathy Thyroid: Thyroid normal Resp Effort & Inspection: normal respiratory effort Auscultation: clear to auscultation bilaterally Cardio Rate: regular rate Rhythm: regular rhythm Heart sounds: S1 normal heart sound present, S2 normal heart sound present and no murmurs GI Palpation (GI): Soft to palpation and nontender Auscultation: normal bowel sounds Skin Other: nails thin, wavy nailbeds Rashes: no rashes Neuro General: patient oriented x3, moves all extremities, no focal motor deficits and deep tendon reflexes 2+ bilaterally Romberg Test: Negative Psych Appearance: grossly normal Mental Status: mental status grossly normal Speech and movement: Normal speech and movement present Affect: normal affect Attitude: cooperative Thought process: Normal thought process present Thought content: Normal thought content present Insight: Good insight present (Psych) Judgement: Good judgement present (Psych) Assessment and Plan Assessment & Plan (1) Encounter for routine adult health examination: Code(s): Z00.00 - Encounter for general adult medical examination without abnormal findings (2) Physical exam: Code(s): Z00.00 - Encounter for general adult medical examination without abnormal findings Plan: Labs ordered (3) Elevated BP without diagnosis of hypertension: Code(s): R03.0 - Elevated blood-pressure reading, without diagnosis of hypertension Plan: monitor BP at home, keeping me posted with BPs Plan The patient agreed to the use of a medical records field technician for this encounter. Scribed for BAILEE Miller by Paula Harmon medical records field technician, on 02/15/2023 at 16:15 EST. Orders: Orders Comprehensive Spangler. Panel Fast Today Z00.00 - Encounter for general adult medical examination without abnormal findings TSH reflex Free T4 Today Z00.00 - Encounter for general adult medical examination without abnormal findings UA CC w/rflx Micro + Cult Today Z00.00 - Encounter for general adult medical examination without abnormal findings Complete Blood Count Auto Diff Today Z00.00 - Encounter for general adult medical examination without abnormal findings Lipid Panel Today Z00.00 - Encounter for general adult medical examination without abnormal findings Coding Level of Care Code Est Pt Prev Care 18-39y(56162) Diagnoses Encounter for routine adult health examination Z00.00 Physical exam Z00.00 Elevated BP without diagnosis of hypertension R03.0
[2023-02-15 16:02] VITALS: BP 142/76; PULSE 92; O2SAT 98; BMI 23.5
== END 2023-02-15 16:57 | disposition home or self-care (01) ==
PROVIDERS: PCP Nurse Practitioner Family; Visit Provider Nurse Practitioner Family
DX: Z00.00 Encounter for general adult medical examination without abnormal findings (principal); R03.0 Elevated blood-pressure reading, without diagnosis of hypertension
CPT/HCPCS: 99395

== ENCOUNTER 2023-02-16 08:26 | Outpatient (REF) | payer OTHER, SELFPAY ==
[2023-02-16 11:23] LABS: MANUAL DIFF FLAG NO
[2023-02-16 11:34] LABS: Appearance Urine Clear; Color Urine Yellow; Glucose Urine UA Negative (Negative); Leukocyte Esterase Urine Negative (Negative); Nitrite Urine Negative (Negative); Specific Gravity - Urine <= 1.005 (1.005-1.025); UMIC TRIGGER UACC YES; Urine Blood Small (1+) (Negative); Urine Ketones Negative (Negative); Urine Protein Negative (Neg-Trace)
[2023-02-16 11:42] LABS: Basophils Absolute Auto 0.1 X10*3/uL (0.0-0.2); Basophils Percent Auto 0.9 % (0-2); Eosinophils Absolute Auto 0.2 X10*3/uL (0.0-0.4); Eosinophils Percent Auto 2.6 % (0-4); Hematocrit 41.5 % (37.0-47.0); Hemoglobin 14.2 g/dl (12.0-16.0); Imm Gran Abs Auto 0.02 X10*3/uL (0.00-0.03); Imm Gran Pct Auto 0.3 % (0.0-0.4); Lymphocytes Absolute Auto 2.1 X10*3/uL (1.2-4.9); Lymphocytes Percent Auto 31.7 % (20-40); Mean Corpuscular HGB Conc 34.2 g/dl (31.0-35.0); Mean Corpuscular Hemoglobin 31.3 pg (27.0-33.0); Mean Corpuscular Volume 91.6 fL (80.0-98.0); Mean Platelet Volume 9.3 fL (9.4-12.3); Monocytes Absolute Auto 0.4 X10*3/uL (0.1-1.2); Monocytes Percent Auto 6.6 % (2-11); Neutrophils Absolute Auto 3.9 x10*3/uL (2.0-8.3); Neutrophils Percent Auto 57.9 % (45-73); Platelet Count 282 X10*3/uL (160-400); Red Blood Count 4.53 X10*6/uL (4.20-5.50); Red Cell Distribution Width 12.6 % (11.0-16.0); White Blood Count 6.7 X10*3/uL (4.8-10.8)
[2023-02-16 11:51] LABS: Bacteria Urine None Seen (None Seen); Hyaline Casts Urine 0-2 /LPF (0-2); RBC Urine 0-2 /HPF (0-2); Squamous Epithelial Cell Urine 0-2 /HPF (0-2); WBC Urine 0-5 /HPF (0-5)
[2023-02-16 11:56] LABS: Alanine Aminotransferase 14 U/L (0-31); Albumin Level 4.4 g/dL (3.5-5.0); Alkaline Phosphatase 64 U/L (39-117); Anion Gap 10 (12-20); Aspartate Amino Transferase 18 U/L (5-31); Bilirubin Total 0.6 mg/dL (0.0-1.0); Blood Urea Nitrogen 9 mg/dL (9-16); Calcium 8.9 mg/dL (8.4-10.2); Carbon Dioxide 28 mmol/L (22-29); Chloride 105 mmol/L (96-108); Cholesterol 169 mg/dL (<200); Estimated Glomerular Filt Rate > 60; Glucose Fasting 87 mg/dL (60-99); HDL Cholesterol 39 mg/dL (>40); LDL Cholesterol Calculated 112 mg/dL (<100); Potassium 4.2 mmol/L (3.3-5.1); Sodium 139 mmol/L (135-145); Total Protein 7.5 g/dL (6.5-8.0); Triglycerides 93 mg/dL (<150)
[2023-02-16 12:16] LABS: TSH reflex Free T4 1.58 uIU/mL (0.32-4.0)
== END 2023-02-16 08:27 | disposition home or self-care (01) ==
LOC: HO.HMGCLDS 08:26
PROVIDERS: PCP Nurse Practitioner Family; Visit Provider Nurse Practitioner Family
DX: Z00.00 Encounter for general adult medical examination without abnormal findings (principal); E78.5 Hyperlipidemia, unspecified; Z13.0 Encounter for screening for diseases of the blood and blood-forming organs and certain disorders involving the immune mechanism; Z13.29 Encounter for screening for other suspected endocrine disorder
CPT/HCPCS: 36415; 80053; 80061; 81001; 84443; 85025

== ENCOUNTER 2023-02-27 08:06 | Outpatient (REF) | payer OTHER, SELFPAY ==
[2023-02-27 11:35] LABS: Appearance Urine Clear; Color Urine Yellow; Glucose Urine UA Negative (Negative); Leukocyte Esterase Urine Negative (Negative); Nitrite Urine Negative (Negative); Specific Gravity - Urine >= 1.030 (1.005-1.025); UMIC TRIGGER UACC YES; Urine Blood Trace (Negative); Urine Ketones Negative (Negative); Urine Protein Negative (Neg-Trace)
[2023-02-27 11:44] LABS: Bacteria Urine None Seen (None Seen); Hyaline Casts Urine 0-2 /LPF (0-2); Squamous Epithelial Cell Urine 0-2 /HPF (0-2); WBC Urine 0-5 /HPF (0-5)
== END 2023-02-27 08:07 | disposition home or self-care (01) ==
LOC: HO.HMGCLDS 08:06
PROVIDERS: PCP Nurse Practitioner Family; Visit Provider Nurse Practitioner Family
DX: Z00.00 Encounter for general adult medical examination without abnormal findings (principal)
CPT/HCPCS: 81001

== ENCOUNTER 2023-11-08 08:46 | Outpatient (REF) | payer OTHER, SELFPAY ==
[2023-11-08 13:12] LABS: Appearance Urine Clear; Color Urine Yellow; Glucose Urine UA Negative (Negative); Leukocyte Esterase Urine Negative (Negative); Nitrite Urine Negative (Negative); PH 5.5 (5.0-9.0); Urine Blood Negative (Negative); Urine Ketones Negative (Negative); Urine Protein Negative (Neg-Trace)
[2023-11-08 13:16] LABS: MANUAL DIFF FLAG NO
[2023-11-08 13:26] LABS: Basophils Absolute Auto 0.1 X10*3/uL (0.0-0.2); Basophils Percent Auto 0.9 % (0-2); Eosinophils Absolute Auto 0.3 X10*3/uL (0.0-0.4); Hematocrit 38.5 % (37.0-47.0); Hemoglobin 13.2 g/dl (12.0-16.0); Imm Gran Abs Auto 0.03 X10*3/uL (0.00-0.03); Imm Gran Pct Auto 0.4 % (0.0-0.4); Lymphocytes Absolute Auto 2.6 X10*3/uL (1.2-4.9); Lymphocytes Percent Auto 31.3 % (20-40); Mean Corpuscular HGB Conc 34.3 g/dl (31.0-35.0); Mean Corpuscular Volume 93.2 fL (80.0-98.0); Mean Platelet Volume 9.3 fL (9.4-12.3); Monocytes Absolute Auto 0.6 X10*3/uL (0.1-1.2); Monocytes Percent Auto 7.2 % (2-11); Neutrophils Absolute Auto 4.7 x10*3/uL (2.0-8.3); Neutrophils Percent Auto 57.2 % (45-73); Platelet Count 264 X10*3/uL (160-400); Red Blood Count 4.13 X10*6/uL (4.20-5.50); Red Cell Distribution Width 12.5 % (11.0-16.0); White Blood Count 8.2 X10*3/uL (4.8-10.8)
[2023-11-08 13:52] LABS: Alanine Aminotransferase 24 U/L (0-31); Albumin Level 4.3 g/dL (3.5-5.0); Alkaline Phosphatase 63 U/L (39-117); Anion Gap 12 (12-20); Aspartate Amino Transferase 23 U/L (5-31); Bilirubin Total 0.4 mg/dL (0.0-1.0); Blood Urea Nitrogen 12 mg/dL (9-16); Calcium 9.3 mg/dL (8.4-10.2); Carbon Dioxide 24 mmol/L (22-29); Chloride 106 mmol/L (96-108); Estimated Glomerular Filt Rate > 60; Glucose Random 76 mg/dL (60-115); Potassium 4.2 mmol/L (3.3-5.1); Sodium 138 mmol/L (135-145); Total Protein 7.5 g/dL (6.5-8.0)
== END 2023-11-08 08:47 | disposition home or self-care (01) ==
LOC: HO.HMGCLDS 08:46
PROVIDERS: PCP Nurse Practitioner Family; Visit Provider Nurse Practitioner Family
DX: R00.2 Palpitations (principal)
CPT/HCPCS: 36415; 80053; 81003; 84443; 85025

== ENCOUNTER → 2024-03-19 15:47 | Outpatient (AMB) | payer OTHER, SELFPAY ==
[2024-03-19 15:58] VITALS: BP 122/80; PULSE 72; O2SAT 98; BMI 25.4
--- NOTE | 2024-03-19 15:58 | A.OFFPC_ITS ---
Vital Signs 03/19/24 15:58 Height 5 ft 7 in Weight 162 lb BMI 25.4 BP 122/80 Blood Pressure Location Rt brachial Position Sitting Pulse 72 Pulse Source Pulse Oximeter Pulse Oximetry (%) 98 Oxygen Delivery Method Room Air Intake Visit Reasons: Annual PE Intake Note: pt is here for annual exam Farm Appraiser Required: No Accompanied by: Self / Same As Patient Allergies clindamycin [CLINDAMYCIN] Allergy (Intermediate, Verified 03/19/24 18:02) HIVES Clindamycin HCl Allergy (Unknown, Uncoded 03/19/24 18:02) hives Medication List - Last Reconciled 03/19/24 by Lawrence Mercado, ADDICTIONS RECOVERY SPECIALIST- acyclovir 400 mg PO DAILY ezetimibe 10 mg PO DAILY [id number]-[id number] 3-fat com #1 27-1-300 mg caps PO Tobacco use date assessed: 03/19/24 Dental Screening Dental Screen Date: 03/19/24 Did you have a dental visit in the last 12 months?: Yes Did you have a dental problem in the last 6 months where you did not have access to dental care?: No Was dental information given to patient?: Patient has dentist HPI Annual PE HPI Details History of Present Illness The patient is a 33-year-old female presenting for a health maintenance examination while addressing ongoing issues such as nail psoriasis and family history of cancer. The patient is currently , a fact she plans to discuss further with her LOGISTICS PROGRAM MANAGER tomorrow. She has a history of nail psoriasis, primarily affecting her fingernails, which is addressed with topical steroids prescribed by a facilities engineer a few weeks prior. The patient also reports a history of anxiety, occasionally triggered by stressful situations, though she generally maintains a relaxed demeanor. The discussion included a notable family history of endometrial cancer in her mother, who underwent chemotherapy and surgery, and stomach cancer in her maternal grandparents. Additionally, her previous liver enzymes were elevated, later revealing a fatty liver on imaging conducted during her previous . Since childbirth, liver enzyme levels had normalized but might again be increasing (according to pt). The patient's past colonoscopy in 2019 revealed a noncancerous polyp, with no endoscopy performed. Health Maintenance - Discussed the need for fasting labs, i ncluding liver function tests, before next visit. - Recommended continued monitoring and d iscussion regarding family history of cancer, particularly with LOGISTICS PROGRAM MANAGER. - Advised on health maintenance during p regnancy, emphasizing follow-up with LOGISTICS PROGRAM MANAGER. Social History - Reports being a chronic nail biter, im pacting her nail health. - Family-centric with a focus on grandmo ther and mother roles and experiences. Review of Systems - Psychological: Reports anxiety, denies any si or hi - Gastrointestinal: Reports history of h emorrhoids. - Dermatological: Reports nail abnormali ties without other psoriatic involvement. denies any cp, sob, n/v, blood in urine Physical Exam General: Cooperative, healthy appearing, comfortable, no acute distress and well developed Orientation: Patient oriented x3 Limitations: No limitations Head: Normal to inspection Ears: Hearing grossly normal bilaterally, TMs intact Nose: Normal external nose present Eyes: Appearance normal, both eyes and all related structures Neck: Normal visual inspection and Yes full ROM Respiratory: Normal respiratory effort and able to speak in complete sentences. Clear to auscultation bilaterally Cardiovascular: Regular rate and rhythm. Normal S1 and S2 GI: Normal to inspection. Soft to palpation and nontender Skin: singular wart to right patellar region Neuro: Patient oriented x3 Extremities: Normal to inspection, but nails show signs of nail psoriasis, nail biting Results Plan 1. - For Fatty Liver: Follow up with [facility] er function tests as part of routine health maintenance. Patient was informed and verbally consented to the use of an ambient scribe for clinic note documentation during this visit. Discussion Notes I discussed the importance of completing the fasting labs, including liver function tests, highlighting that the patient doesn?t need to coley but should fast prior to the test. We acknowledged the use of topical steroids for her nail psoriasis and addressed her situational anxiety. I emphasized the need for ongoing monitoring of her family history concerning cancer. We agreed upon such preventative strategies and continued surveillance, notably as she approaches age 44. Patient Instructions - Schedule and complete fasting labs, in cluding liver function tests. - Continue current nail psoriasis treatm ent with prescribed topical steroids. - Utilize relaxation techniques to manag e anxiety. - Monitor hemorrhoidal symptoms and repo rt significant changes. - Follow up with LOGISTICS PROGRAM MANAGER for -relat ed care. [facility] Medical History No known health problems Surgical History No pertinent past surgical history Family History Maternal Grandmother Mental health disorder Social History Housing: House Patient Tobacco Use Status: Never used Tobacco e-Cigarette/Vaping Use: Never Used Second Hand Smoke Exposure: No service: No Current occupational status: employed Current occupation: [employer] [place] Current occupational exposures/hazards: No Cognitive needs: No Hearing needs: No Vision needs: No Questionnaire PHQ-9 Over the last 2 weeks, how often have you been bothered by any of the following problems? 1. Little interest or pleasure in doing things: not at all 2. Feeling down, depressed, or hopeless: not at all 3. Trouble falling or staying asleep, or sleeping too much: not at all 4. Feeling tired or having little energy: not at all 5. Poor appetite or overeating: not at all 6. Feeling bad about yourself - or that you are a failure or have let yourself or your family down: not at all 7. Trouble concentrating on things, such as reading the newspaper or watching television: not at all 8. Moving or speaking so slowly that other people could have noticed. Or the opposite - being so fidgety or restless that you have been moving around a lot more than usual: not at all 9. Thoughts that you would be better off or of hurting yourself in some way: not at all Total score: 0 Depression Screening Interpretation: Negative Depression Screening Done: Yes 71618 - PHQ-9 Billing: Yes Source: Developed by Drs. Alejo Varghese, Susan Perkins, Keenan Dunn and colleagues, with an educational maribel from [employer]. Thrive Questionnaire Date Thrive assessed: 03/19/24 I am a: Patient What is your living situation today?: I have a steady place to live Within the past 12 months, did the food you bought not last and you didn't have the money to get more?: Never true Within the past 12 months, did you worry whether your food would run out before you got money to buy more?: Never true Do you have trouble paying for medicines?: No Do you have trouble getting transportation to medical appointments?: No Do you have trouble paying your heating and electricity bill?: No Do you have trouble taking care of your child, family member or friend?: No Do you have trouble with day-to-day activities such as bathing, preparing meals, shopping, managing finances, etc.?: No Are you currently unemployed and looking for a job?: No Are you interested in more education?: No Please select the resources that you would like help with: None Currently or been in a relationship where the following occur: No concerns reported THRIVE Score: 0 AUDIT C Alcohol Use Questionnaire (AUDIT-C) 1. How often do you have a drink containing alcohol?: Monthly or less 2. How many drinks containing alcohol do you have on a typical day when you are drinking?: 1 or 2 3. How often do you have six or more drinks on one occasion?: Never Total Score: 1 Score Reviewed/Action Taken: Yes FRANCISCO-7 AMB Questionnaire FRANCISCO-7 Date FRANCISCO - 7 assessed: 03/19/24 Feeling nervous, anxious, or on edge: 0 = Not at all Not being able to stop or control worryin = Not at all Worrying too much about different things: 0 = Not at all Trouble relaxin = Not at all Being so restless that it is hard to sit still: 0 = Not at all Becoming easily annoyed or irritable: 0 = Not at all Feeling afraid as if something awful might happen: 0 = Not at all Total FRANCISCO-7 score (0-4 normal; 5-9 mild; 10-14 moderate; 15-21 severe): 0 Source: Developed by Drs. Alejo Varghese, Susan Perkins, Keenan Dunn and colleagues, with an educational maribel from [employer]. FRANCISCO-7 Assessment Billing FRANCISCO-7 Assessment Tool: FRANCISCO-7 Assessment 78350 Physical exam (Primary Care) Vital Signs: Last Vital Signs Pulse 72 03/19/24 15:58 BP 122/80 03/19/24 15:58 Pulse Ox 98 03/19/24 15:58 Oxygen Delivery Method Room Air 03/19/24 15:58 BMI result Body Mass Index 25.4 Tobacco/Smoking Status: Tobacco use Status Tobacco use date assessed 03/19/24 03/19/24 16:00 Patient Tobacco Use Status Never used Tobacco 03/19/24 16:00 e-Cigarette/Vaping Use Never Used 03/19/24 16:00 PHQ-9: PHQ-9 Score PHQ-9: Total score 0 03/19/24 16:00 Depression Screening Interpretation: Negative Thrive Assessment: Date of Thrive Assessment Date Thrive assessed 03/19/24 03/19/24 16:00 Currently or been in a relationship where the following occur: No concerns reported Coding Level of Care Code Est Pt Prev Care 18-39y(03108) Diagnoses Physical exam Z00. Additional Codes FRANCISCO-7 Assessment Billing - FRANCISCO-7 Assessment Tool: FRANCISCO-7 Assessment 16719 ([id number]) PHQ-9 - 15528 - PHQ-9 Billing: Yes ([id number]) Assessment & Plan Assessment & Plan (1) Physical exam: Code(s): Z00.00 - Encounter for general adult medical examination without abnormal findings Category: Medical Plan lab orders entered Orders: Orders Complete Blood Count Auto Diff Today Z00.00 - Encounter for general adult medical examination without abnormal findings TSH reflex Free T4 Today Z00.00 - Encounter for general adult medical examination without abnormal findings Lipid Panel Today Z00.00 - Encounter for general adult medical examination without abnormal findings Comprehensive Van. Panel Fast Today Z00.00 - Encounter for general adult medical examination without abnormal findings UA CC w/rflx Micro + Cult Today Z00.00 - Encounter for general adult medical examination without abnormal findings Medications: Discontinued ezetimibe schedule PCP appt for future refills Discontinued Reason: Doctor's Order 10 mg PO DAILY 90 tabs 0RF
--- OUTSIDE RECORDS SUMMARY | 2024-03-20 22:26 | XMS_ITS ---
Author Organization [facility] Address [address] [place] [address] Care Team Providers Care Diamond Sawer Name Role Phone JASMINE PHAN Primary Care Provider Alejo Castaneda [phone] REASON FOR VISIT question on next colonoscopy Encounters Encounter Location Date Provider Diagnosis [facility] [address] [place] [address] 03/20/2024 Alejo Diallo PLAN OF TREATMENT No Information
--- OUTSIDE RECORDS SUMMARY | 2024-03-20 22:26 | XMS_ITS | Patient Health Record ---
Author Organization [facility] Address [address] [place] [address] Care Team Providers Care Bar Tacker Sewing Machine Name Role Phone JASMINE PHAN Primary Care Provider Alejo Castaneda [phone] ALLERGIES Allergen (clinical drug ingredient) Drug/Non Drug Allergy documented on EMR Reaction Allergy Type Onset Date Status Clindamycin Phosphate Unknown Drug Allergy Active REASON FOR REFERRAL No Information MEDICATIONS Medication SIG (Take, Route, Fr equency, Duration) Notes Start Date End Date Status Acyclovir 400 mg one tab orally as needed Active Sronyx 0.1-20 MG-MCG 1 tablet Orally Onc e a day for 28 day(s) Active IMMUNIZATIONS Vaccine Route Administration Date Status Comme nts Influenza Unknown 01/08/2018 Administered SOCIAL HISTORY Tobacco Use: Social History Observation Description Date Details (start date - stop date) Never Smoker NA - NA Sex Assigned At : Social History Observation Description Sex Assigned At Unknown Tobacco Use/Smoking Question Answer Notes Patient is a nonsmoker Alcohol Screen Question Answer Notes Did you have a drink contain ing alcohol in the past year? Yes How often did you have a dri nk containing alcohol in the past year? 2 to 3 times a week (3 points) How many drinks did you have on a typical day when you were drinking in the past year? 3 or 4 drinks (1 point) How often did you have 6 or more drinks on one occasion in the past year? Never (0 point) Points 4 Interpretation Positive PROBLEMS Problem Type ICD Code Onset Dates Problem Status W/U Status Risk SNOMED Code Notes Problem Rectal bleeding (K62.5) Active confirmed [id number] Encounters Encounter Location Date Provider Diagnosis [facility] [address] [place] [address] 03/20/2024 Alejo Diallo PLAN OF TREATMENT Future Test Test Name Order Date COLONOSCOPY 01/15/2019 Insurance Providers Payer Name Payer Address Payer Phone Subscriber Number Group Number Insured Name Patient Relationship to Insured Coverage Start Date Coverage End Date [facility] [address] [address] [place] [address] [id number] DANIEL NANCE Self - patient is the insured MEDICAL (GENERAL) HISTORY Medical History History ICD Code Denies [place],DM,CVA,Lung disease,renal dise ase Surgical History Surgery Date(Month/Year)
== END ==
PROVIDERS: PCP Nurse Practitioner Family; Visit Provider Nurse Practitioner Family
DX: Z00.00 Encounter for general adult medical examination without abnormal findings (principal)

== ENCOUNTER → 2024-03-19 15:47 | Outpatient (BNVA) | payer OTHER, SELFPAY | PROVIDERS: PCP Nurse Practitioner Family; Visit Provider Nurse Practitioner Family | DX: Z00.00 Encounter for general adult medical examination without abnormal findings (principal) | CPT/HCPCS: 96127 ==

== ENCOUNTER 2024-03-22 08:11 | Outpatient (REF) | payer OTHER, SELFPAY ==
--- OUTSIDE RECORDS SUMMARY | 2024-03-22 08:13 | XMS_ITS | Patient Health Record ---
Author Organization [facility] Address [address] [place] [address] Care Team Providers Care Medical Assistant Prn Name Role Phone JASMINE PHAN Primary Care Provider Alejo Castaneda [phone] ALLERGIES Allergen (clinical drug ingredient) Drug/Non Drug [...] Notes Problem Rectal bleeding (K62.5) Active confirmed [id number] Encounters Encounter Location Date Provider Diagnosis [facility] [address] [place] [address] 03/20/2024 Alejo Diallo PLAN OF TREATMENT Future Test Test Name Order Date COLONOSCOPY 01/15/2019 Insurance Providers Payer Name Payer Address Payer Phone Subscriber Number Group Number Insured Name Patient Relationship to Insured Coverage Start Date Coverage End Date [facility] [address] [address] [place] [address] [id number] DANIEL NANCE Self - patient is the insured MEDICAL (GENERAL) HISTORY Medical History History ICD Code Denies [place],DM,CVA,Lung disease,renal dise ase Surgical History Surgery Date(Month/Year)
--- OUTSIDE RECORDS SUMMARY | 2024-03-22 08:13 | XMS_ITS ---
Author Organization [facility] Address [address] [place] [address] Care Team Providers Care Assembly Press Operator Name Role Phone JASMINE PHAN Primary Care Provider Alejo Castaneda [phone] REASON FOR VISIT question on next colonoscopy Encounters Encounter Location Date Provider Diagnosis [facility] [address] [place] [address] 03/20/2024 Alejo Diallo PLAN OF TREATMENT No Information
[2024-03-22 10:28] LABS: Appearance Urine Turbid; Color Urine Dark Yellow; Glucose Urine UA Negative (Negative); Leukocyte Esterase Urine Negative (Negative); Nitrite Urine Negative (Negative); PH 5.5 (5.0-9.0); Specific Gravity - Urine >= 1.030 (1.005-1.025); UMIC TRIGGER UACC YES; Urine Blood Small (1+) (Negative); Urine Ketones Trace mg/dL (Negative); Urine Protein Trace mg/dL (Neg-Trace)
[2024-03-22 10:31] LABS: Bacteria Urine None Seen (None Seen); Hyaline Casts Urine 0-2 /LPF (0-2); WBC Urine 0-5 /HPF (0-5)
[2024-03-22 10:31] LABS: MANUAL DIFF FLAG NO
[2024-03-22 10:40] LABS: Basophils Percent Auto 0.6 % (0-2); Eosinophils Absolute Auto 0.1 X10*3/uL (0.0-0.4); Hematocrit 35.5 % (37.0-47.0); Hemoglobin 12.2 g/dl (12.0-16.0); Imm Gran Abs Auto 0.02 X10*3/uL (0.00-0.03); Imm Gran Pct Auto 0.3 % (0.0-0.4); Lymphocytes Absolute Auto 2.1 X10*3/uL (1.2-4.9); Lymphocytes Percent Auto 30.2 % (20-40); Mean Corpuscular HGB Conc 34.4 g/dl (31.0-35.0); Mean Corpuscular Hemoglobin 32.2 pg (27.0-33.0); Mean Corpuscular Volume 93.7 fL (80.0-98.0); Mean Platelet Volume 9.3 fL (9.4-12.3); Monocytes Absolute Auto 0.5 X10*3/uL (0.1-1.2); Monocytes Percent Auto 6.7 % (2-11); Neutrophils Absolute Auto 4.3 x10*3/uL (2.0-8.3); Neutrophils Percent Auto 60.2 % (45-73); Platelet Count 257 X10*3/uL (160-400); Red Blood Count 3.79 X10*6/uL (4.20-5.50); Red Cell Distribution Width 12.1 % (11.0-16.0); White Blood Count 7.1 X10*3/uL (4.8-10.8)
[2024-03-22 11:13] LABS: Alanine Aminotransferase 19 U/L (0-31); Albumin Level 4.1 g/dL (3.5-5.0); Alkaline Phosphatase 50 U/L (39-117); Anion Gap 8 (12-20); Aspartate Amino Transferase 20 U/L (5-31); Bilirubin Total 0.6 mg/dL (0.0-1.0); Blood Urea Nitrogen 11 mg/dL (9-16); Calcium 8.6 mg/dL (8.4-10.2); Carbon Dioxide 25 mmol/L (22-29); Chloride 109 mmol/L (96-108); Cholesterol 168 mg/dL (<200); Estimated Glomerular Filt Rate > 60; Glucose Fasting 88 mg/dL (60-99); HDL Cholesterol 39 mg/dL (>40); LDL Cholesterol Calculated 108 mg/dL (<100); Potassium 3.9 mmol/L (3.3-5.1); Sodium 138 mmol/L (135-145); TSH reflex Free T4 1.82 uIU/mL (0.32-4.0); Total Protein 6.8 g/dL (6.5-8.0); Triglycerides 109 mg/dL (<150)
== END 2024-03-22 08:12 | disposition home or self-care (01) ==
LOC: HO.HMGCLDS 08:11
PROVIDERS: PCP Nurse Practitioner Family; Visit Provider Nurse Practitioner Family
DX: Z00.00 Encounter for general adult medical examination without abnormal findings (principal)
CPT/HCPCS: 36415; 80053; 80061; 81001; 84443; 85025

== ENCOUNTER 2024-11-04 08:02 | Outpatient (REF) | payer OTHER, SELFPAY ==
--- OUTSIDE RECORDS SUMMARY | 2024-11-04 08:05 | XMS_ITS | Clinical Summary ---
Author Organization [facility] [address] [facility] Address [address] [place] [address] Phone Care Team Providers Care Detacher Name Role Phone Sergio Obregon MD Primary Care Provider [phone] Allergies Active Allergy Reactions Criticality Noted Date Comments Clindamycin Hives,Swelling High 06/26/2008 Medications mometasone (ELOCON) 0.1 % ointment Apply half a fingertip amount to the vulva nightly x42 weeks thent wice weekly 3 Active vit,bryant [id number] 27 mg iron- 1 mg tablet Take 1 tablet by mouth 1 (one) time each day. 30 each 12 4 Active aspirin 81 mg EC tablet Take 2 tablets (162 mg total) by mouth 1 (one) time each day. 60 tablet 6 5 06/03/19 26 Active Active Problems Problem Noted Date Diagnosed Date Uterine size-date discrepancy in third trimester 10/22/2024 Overview (10/22/2024): 10/22- S<D, Growth US ordered Herpes zoster without complication 10/22/2024 Overview (10/22/2024): 10/2024- rash to RUQ and upper back. Sees by PCP and started on treatment for shingles. Taking Acyclovir- sx have mostly resolved and rash dried out. Multigravida of advanced maternal age in second trimester 06/03/2024 Overview (06/03/2024): ASA 162 mg daily at 12w through delivery Referral for NIPT if desired Detailed US 3rd trimester growth US if maternal age 40 or greater Weekly NST at 36 weeks Offer delivery at 39 weeks if maternal age 40 or greater Encounter for supervision of other normal , first trimester 04/30/2024 Overview (10/29/2024): 1. [facility] site: [facility]: [address], [place] [address] ([phone]) 2. Delivery site: [facility] 3. Mobile Mommas: No 4. Dating criteria: LMP 5. Blood type: O+ 6. Genetic screening: Date: Result: Panorama: Low Risk Horizon: Declined Nuchal: wnl Survey: WNL MSAFP: neg 6. GBS: Negative Date: 10/21 7. FOB name: Cm 8. Plans A. Epidural or other pain management - Epidural B. Labor support identified - Cm C. Tdap - Date: Flu - Date: D. Breast or Bottle feed: E. Baby's name - It's a [place]! F. Circumcision - yes, if male 9. Hospital Course: Hemorrhoids 04/30/2024 Overview (04/30/2024): Rectal bleeding d/t hemorrhoids, 2019 colonoscopy done benign Spondylolisthesis, grade 1 06/04/2008 Overview (03/15/2024): Eval'd at [facility], PT recommended Estimated Date of Delivery Comme nts Yes 11/17/2024 Based on last me nstrual period of 02/11/2024 (Exact Date) Resolved Problems Problem Noted Date Diagnosed Date Resolved Date Maternal varicella, non-immune 04/30/2024 04/30/2024 Overview (04/30/2024): Per patient had chicken pox 2 times Encounters Date Type Department Care Team Description 10/30/2024 Telephone Obstetrics and Gynecology - [address] [phone] Charity Marroquin [place] 10/29/2024 4:00 PM EDT Routine Obstetrics and Gynecology - [address] [phone] Moraima Frias CNM Supervision of other normal , antepartum (Primary Dx); Uterine size-date discrepancy in third trimester; 37 weeks gestation of ; Multigravida of advanced maternal age in second trimester; NST (non-stress test) reactive 10/28/2024 8:00 AM EDT Ancillary Procedure Maternal Medicine - [address] [phone] Uterine size-date discrepancy in third trimester; AMA (advanced maternal age) multigravida 35+, third trimester; Encounter for maternal care for poor growth in [place] in third trimester; Encounter for suspected problem with growth ruled out 10/22/2024 3:45 PM EDT Routine Obstetrics and Gynecology - [address] [phone] Moraima Frias CNM Encounter for supervision of other normal , third trimester (Primary Dx); Uterine size-date discrepancy in third trimester; 36 weeks gestation of ; Multigravida of advanced maternal age in second trimester; screening for streptococcus B; NST (non-stress test) reactive 09/30/2024 2:45 PM EDT Routine Obst[facility]s [facility]cology - [facility] [address] [place], [place] [phone] Berenice Romano CNM 33 weeks gestation of (Primary Dx); Encounter for supervision of other normal , third trimester 09/13/2024 10:15 AM EDT Routine Obstetrics and Gynecology - [facility] [address] [place], [place] [phone] Cecille Sibley CNM Encounter for supervision of other normal , third trimester (Primary Dx); Multigravida of advanced maternal age in second trimester; 30 weeks gestation of 08/29/2024 1:15 PM EDT Routine Obstetrics and Gynecology - [facility] [address] [place] [phone] Berenice Romano CNM Encounter for supervision of other normal , third trimester (Primary Dx); 28 weeks gestation of from Last 3 Months Immunizations Name Administration Dates Next Due DTP 11/17/1993, 1,1989,07/31,1989 PPcE-OCP-VHA (Pentacel) 2mo to less than 5yo 07/09/1990,06/12/1990 HPV, Quadrivalent 09/29/2006,05/23/2006,03/22/20 06 Hepatitis B Pediatric (Enger ix B; Recombivax HB) to less than 20 yo 08/21/2000,11/08/1999,09/23/1999 Influenza Quadravalent, MDCK , 0.5ml, with preservative (Flucelvax) 6mo and older 01/15/2020,01/19/2018,02/03/2017 Influenza trivalent, 0.5mL, preservative free (Fluarix; FluLaval; Fluzone) ages 6mo and older (Afluria) 3 years and older 03/22/2006 Influenza trivalent, with pr eservative (Fluzone; Afluria) 6mo and older 01/21/2014 MMR, measles mumps and rubel la Live (Priorix; M-M-R II) 12mo and older 07/05/1994,07/09/1990 Meningococcal MCV4P 03/26/2007 OPV 11/17/1993, 1,1989,06/06 PPD Test 08/06/2007,09/14/2004 Td Tetanus diptheria (Tdvax) 7yo and older 11/08/1999 Tdap Tetanus diptheria acell ular pertussis (Boostrix; Adacel) 7yo and older 08/29/2024,11/02/2021,12/05/2017,03/22 Surgical History Surgery Date Site/Laterality Comments TYMPANOSTOMY TUBE PLACEMENT 07/07/1990 PROCEDURE: HISTORICAL PE TUBES; COMMENT: DR. PAIGE @ [facility] OTHER SURGICAL HISTORY 2006 PROCEDURE: ---- OTHER ----; COMMENT: drainage of infected hematoma of L leg COLONOSCOPY 2018 PROCEDURE: HISTORICAL COLONOSCOPY; COMMENT: benign (seen for rectal bleeding) WISDOM TOOTH EXTRACTION PROCEDURE: HISTORICAL WISDOM TEETH EXTRACTION; COMMENT: ?[employer], all 4 Medical History Medical History Date Comments Varicella without mention of complication DX:Varicella without mention of complication Scoliosis (and kyphoscoliosi s), idiopathic DX:Scoliosis (and kyphoscoli osis), idiopathic; COMMENT: saw lonnie as child and had therapy. No issues since. Concussion with no loss of consciousness 02/21/1991 DX:Concussion with no loss o f consciousness Pathologic fracture of dista l radius and ulna 11/06/1992 DX:Pathologic fracture of di stal radius and ulna Urinary tract infection, sit e not specified DX:Urinary tract infection, site not specified; COMMENT: when she was a child, would get bad UTI's and kidney infections Hemorrhoids DX:Hemorrhoids; COMMENT: had some rectal bleeding History of MRSA infection DX:His tory of MRSA infection History of cold sores DX:History of cold sores Family History Medical History Relation Name Comments Asthma Brother 1 Paul Hypertension Brother 1 Paul No Known Problems Brother 2 Anand Allergies Father Seymour Coronary artery disease Father Seymour leung y 50's Hypertension Father Seymour Diabetes Maternal Grandfather diet co ntrolled Esophageal cancer Maternal Grandfather Dementia Maternal Grandmother Stomach cancer Maternal Grandmother ?Dx i n 70's Thyroid disease Maternal Grandmother Allergies Mother Jamia Endometrial cancer Mother Jamia 2023 Other: fibroids Mother Jamia Uterine cancer Mother Jamia Diabetes Paternal Grandfather possibl e Hypertension Paternal Grandfather possibl e Other: car accident Paternal Grandfather Stroke Paternal Grandfather Breast cancer Neg Hx Cervical cancer Neg Hx Colon cancer Neg Hx Ovarian cancer Neg Hx Pancreatic cancer Neg Hx Prostate cancer Neg Hx Relation Name Status Comments Aunt Alive healthy Brother 1 Paul Alive Paul born 84 , healthy Brother 2 Anand Alive Anand born '87, healthy Father Seymour Alive CABG age 54 Maternal Grandfather (Age 76) es ophageal cancer Maternal Grandmother stomach CA resected Mother Jamia Alive Paternal Grandfather Paternal Grandmother Social History Tobacco Use Types Packs/Day Years Used Date Smoking Tobacco: Never Smokeless Tobacco: Never Alcohol Use Standard Drinks/Week Comments Not Currently 0 (1 standard drink = 0.6 oz pur e alcohol) Housing Instability Answer Date Recorde d Are you worried that in the next 2 months you may not have stable housing? No 03/19/2024 Food Access & Nutrition Answer Date Rec orded Do you have access to a vari ety of food including fruits and vegetables? No 03/19/2024 Access to Healthcare Answer Date Record ed Within the last 3 months, ho w many times did you visit the emergency department for your medical care? 0 03/19/2024 Health Literacy Answer Date Recorded How often do you need to hav e someone help you when you read instructions, pamphlets, or other written material from your doctor or pharmacy? Never 03/19/2024 Caregiver: How often do you need to have someone help you when you read instructions, pamphlets, or other written material from your doctor or pharmacy? Not on file 03/19/2024 Financial Risk Answer Date Recorded How hard is it for you to pa y for the very basics like food, housing, medical care, and air conditioning / heating? Not very hard 03/19/2024 Transportation Answer Date Recorded Has the lack of transportati on kept you from meetings, work, or from getting things needed for daily living? Not asked 2023 Has the lack of transportati on kept you from medical appointments or from getting medications? Not asked 03/19/2024 Social Isolation Answer Date Recorded How often do you feel lonely or isolated from th ose around you? Never 03/19/2024 Food Risk Answer Date Recorded Within the past 12 months we worried whether our food would run out before we got money to buy more. Never true 03/19/2024 Within the past 12 months th e food we bought just didn't last and we didn't have money to get more. Never true 03/19/2024 Dependent Care Answer Date Recorded Do you need help finding or paying for care for your loved ones. For example, child welfare assistant or elderly care for an older adult? No 03/19/2024 Education Answer Date Recorded Do you think completing more education or training, like finishing a GED, going to college, or learning a trade, would be helpful for you? No 03/19/2024 Employment and Income Answer Date Recor ded During the last four weeks, have you been actively looking for work? No 03/19/2024 Living Situation Answer Date Recorded What is your living situation? 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 Not on file Not on file Not on file Travel History Travel Start Travel End [place] 10/11/2024 10/13/2024 Obstetrics History Para Term AB IAB SAB Ectopic Multiple Livin g Live Births 2 1 1 0 0 0 0 0 0 1 1 Date Outcome GA Total Labor Labor/2nd/3rd Weight Sex Type Anes PTL Eliza A1 A5 Name Clin 2021 Term 39w 4d 4h 27m 4h 07m/0h 13m/0h 07m 3232 g (114 oz) F Vag-S pont Epidur al N Livin g 8 9 Moraima Frias CNM Complications:None Delivery Location:[facility] Comments:GBS+ Current Summary Episode Dates Number of Fetuses Estimated Date of Delivery 03/20/2024 - Present (11/04/2024) 1 11/17/2024 (set by Tara Puga RN on 03/20/2024 based on Last Menstrual Period on 02/11/2024 (Exact Date)) Dating Summary Based On BALJIT GA Diff Last Menstrual Period on 02/11/2024 (Exact Date) 11/17/2024 Working Alternate BALJIT Entry 11/17/2024 Same Comment:Date entered prior t o episode creation Overview and Plan :[place] Delivery Plans Post-Delivery Plans Planned delivery method:Vaginal Feeding intentions:Exclusive Planned anesthesia:Epidural Circumcision requested:Provider Performed Acceptable blood products:All Planned bi rth control:Male Sterilization Vitals Pregravid Weight Height TWG (As of 11/04/2024) Pregrav id BMI 73 kg (161 lb) 1.651 m (65 ) 9.616 kg (21 lb 3.2 oz) 2 6.79 Notes Progress Notes - Routine Pre florian - 10/29/2024 - GA:37w2d 10/29/2024 - 37w2d - Moraima Frias CNM OB Visit: Vitals BP: 112/78 Weight: 82.6 kg (182 lb 3.2 oz) Assessment Heart Rate: 130 Fundal Height (cm): 36 cm Movement: Present Presentation: Cephalic Vaginal Drainage Leaking Fluid: No 34 y.o. old female at 37w2d. Doing well. Appropriate FM. No LOF/VB/cramping. Her only new concern is none. Taking Tums for reflux, helping some, declines Pepcid. Dietary restrictions reviewed. She had recent growth scan that demonstrated Growth at 84th%tile and AC at 99%tile, repeat GTT is recommended. GTT ordered today, results reviewed with pt and she agrees to repeat GTT. Otherwise healthy . Her BP is reviewed and is Normal. This patient does not require a urine drug screen. GBS negative. Signs and symptoms of labor reviewed including reasons to call triage. Problem List reviewed and updated. RTO 1 weeks. NST- Baseline- 130 Mod variability +accels No decels No contractions Reactive tracing Repeat in 1 week Moraima Frias CNM on 10/29/2024 at 4:55 PM EDT Progress Notes - Routine Pre - 10/22/2024 - GA:36w2d 10/22/2024 - 36w2d - Moraima Frias CNM OB Visit: Vitals BP: 126/79 Weight: 81.6 kg (180 lb) Assessment Heart Rate: 140 Fundal Height (cm): 33 cm Movement: Present Presentation: Cephalic Vaginal Drainage Leaking Fluid: No 34 y.o. old female at 36w2d. Doing well. Appropriate FM. No LOF/VB/cramping. Her only new concern is none. Otherwise healthy . Her BP is reviewed and is Normal. Tdap not indicated at today's visit. This patient has received Tdap during this . This patient does not require a urine drug screen. This patient's VTE risk status is low. FH- 33cm- S<D, FHT- 140. Growth US ordered. Needs weekly NST for AMA. NST reactive today. Signs and symptoms of labor reviewed including reasons to call triage. Problem List reviewed and updated. RTO 1 weeks. Patient is planning to breast feed. Benefits of breast feeding were discussed at this visit. NST Variability- moderate Baseline- 140 Accels- positive Decels- none Ctx- none Results- Reactive Recommendations- Repeat in 1 week Moraima Frias CNM on 10/22/2024 at 5:14 PM EDT Progress Notes - Routine Pre florian - 09/30/2024 - GA:33w1d 09/30/2024 - 33w1d - Berenice Romano CNM Subjective Chief Complaint Patient presents with Routine Visit Daniel Wang is a 34 y.o. at 33w1d with a working estimated date of delivery of 11/17/2024, by Last Menstrual Period who presents for a routine visit. She denies vaginal bleeding, leakage of fluid, decreased movements, or contractions. No concens Review of Systems The following portions of the patient's chart were reviewed in this encounter and updated as appropriate: Allergies Meds Objective Physical Exam Weight: 80.3 kg (177 lb) Expected Total Weight Gain: 7 kg (15 lb)-11.5 kg (25 lb) Pregravid BMI: 25.21 BP: 126/76 Heart Rate: 145 Fundal Height (cm): 33 cm Presentation: Cephalic OBGyn Exam Labs Urine dip: , , , Hemoglobin Date Value Ref Range Status 08/29/2024 11.6 11.5 - 16.0 g/dL Final Hematocrit Date Value Ref Range Status 08/29/2024 34.8 (L) 35.0 - 47.0 % Final ABO Group Date Value Ref Range Status 04/30/2024 O Final Rh Type Date Value Ref Range Status 04/30/2024 Positive Final Hepatitis B Surface Ag Date Value Ref Range Status 04/30/2024 Negative Negative Final Assessment/Plan 33 weeks gestation of (Primary) Encounter for supervision of other normal , third trimester Progress Notes - Routine Pre - 09/13/2024 - GA:30w5d 09/13/2024 - 30w5d - Cecille Sibley CNM OB Visit: 34 y.o. old female at 30w5d. Doing well. Appropriate FM. No LOF/VB/cramping. Her only new concern is questions about the changes with THofNE. Otherwise healthy . Her BP is reviewed and is Normal. Signs and symptoms of labor reviewed including reasons to call triage. The patient does not require anesthesia consult. Problem List reviewed and updated. RTO 2 weeks. Cecille Sibley CNM on 09/13/2024 at 10:13 AM EDT Progress Notes - Routine Pre florian - 08/29/2024 - GA:28w4d 08/29/2024 - 28w4d - Berenice Romano CNM Subjective Chief Complaint Patient presents with Routine Visit Daniel Wang is a 34 y.o. at 28w4d with a working estimated date of delivery of 11/17/2024, by Last Menstrual Period who presents for a routine visit. She denies vaginal bleeding, leakage of fluid, decreased movements, or contractions. No concerns. Tdap today. Review of Systems: normal The following portions of the patient's chart were reviewed in this encounter and updated as appropriate: Allergies Meds Objective Physical Exam Weight: 78 kg (172 lb) Expected Total Weight Gain: 11.5 kg (25 lb)-16 kg (35 lb) Pregravid BMI: 24.66 BP: 107/73 Heart Rate: 145 Fundal Height (cm): 29 cm Presentation: Cephalic OBGyn Exam Labs Hemoglobin Date Value Ref Range Status 04/30/2024 12.5 11.5 - 16.0 g/dL Final Hematocrit Date Value Ref Range Status 04/30/2024 36.6 35.0 - 47.0 % Final ABO Group Date Value Ref Range Status 04/30/2024 O Final Rh Type Date Value Ref Range Status 04/30/2024 Positive Final Hepatitis B Surface Ag Date Value Ref Range Status 04/30/2024 Negative Negative Final Assessment/Plan Encounter for supervision of other normal , third trimester (Primary) 28 weeks gestation of Other orders - Tdap Tetanus diptheria acellular pertussis (Boostrix; Adacel) 7yo and older Progress Notes - Routine Pre - 07/31/2024 - GA:24w3d 07/31/2024 - 24w3d - Berenice Romano CNM Subjective Chief Complaint Patient presents with Routine Visit Daniel Wang is a 34 y.o. at 24w3d with a working estimated date of delivery of 11/17/2024, by Last Menstrual Period who presents for a routine visit. She denies vaginal bleeding, leakage of fluid, decreased movements, or contractions. No copncerns. Review of Systems The following portions of the patient's chart were reviewed in this encounter and updated as appropriate: Allergies Objective Physical Exam Weight: 75.9 kg (167 lb 6.4 oz) Expected Total Weight Gain: 11.5 kg (25 lb)-16 kg (35 lb) Pregravid BMI: 24.66 BP: 108/61 OBGyn Exam Labs Hemoglobin Date Value Ref Range Status 04/30/2024 12.5 11.5 - 16.0 g/dL Final Hematocrit Date Value Ref Range Status 04/30/2024 36.6 35.0 - 47.0 % Final ABO Group Date Value Ref Range Status 04/30/2024 O Final Rh Type Date Value Ref Range Status 04/30/2024 Positive Final Hepatitis B Surface Ag Date Value Ref Range Status 04/30/2024 Negative Negative Final Assessment/Plan Encounter for supervision of other normal , second trimester (Primary) 24 weeks gestation of - CBC and differential; Future - Glucose tolerance test, 1h gestation; Future Encounter for screening of mother - CBC and differential; Future - Treponema pallidum antibody with reflex to RPR and particle agglutination; Future - Glucose tolerance test, 1h gestation; Future Progress Notes - Routine Pre - 07/02/2024 - GA:20w2d 07/02/2024 - 20w2d - Berenice Romano CNM Subjective Chief Complaint Patient presents with Routine Visit Daniel Wang is a 34 y.o. at 20w2d with a working estimated date of delivery of 11/17/2024, by Last Menstrual Period who presents for a routine visit. She denies vaginal bleeding, leakage of fluid, decreased movements, or contractions. Review of Systems: normal The following portions of the patient's chart were reviewed in this encounter and updated as appropriate: Allergies Meds Problems Objective Physical Exam Weight: 73.8 kg (162 lb 12.8 oz) Expected Total Weight Gain: 11.5 kg (25 lb)-16 kg (35 lb) Pregravid BMI: 24.66 BP: 101/75 OBGyn Exam Labs Hemoglobin Date Value Ref Range Status 04/30/2024 12.5 11.5 - 16.0 g/dL Final Hematocrit Date Value Ref Range Status 04/30/2024 36.6 35.0 - 47.0 % Final ABO Group Date Value Ref Range Status 04/30/2024 O Final Rh Type Date Value Ref Range Status 04/30/2024 Positive Final Hepatitis B Surface Ag Date Value Ref Range Status 04/30/2024 Negative Negative Final Assessment/Plan Encounter for supervision of other normal , second trimester (Primary) 20 weeks gestation of Progress Notes - Routine Pre florian - 06/03/2024 - GA:16w1d 06/03/2024 - 16w1d - Earline Cardenas DO Daniel is a 34yo at 16 1/7w presenting with no complaints for DESTINEE visit. is complicated by AMA - she is not yet taking aspirin daily. Denies VB, discharge and cramping. She did go skiing this past weekend and admits to some constipation. Visit Vitals BP 103/71 Wt 72.8 kg (160 lb 9.6 oz) LMP 02/11/2024 (Exact Date) BMI 24.60 kg/m OB Status Smoking Status Never BSA 1.86 m FHT: 145bpm by doppler Advised increased hydration, fiber intake and colace for constipation. Aspirin sent to pharmacy AFP ordered. survey scheduled. Earline Voss DO Progress Notes - Initial Pre florian - 05/06/2024 - GA:12w1d 05/06/2024 - 12w1d - Cecille Sibley CNM OB 12 week appt IP: S: Daniel is a 34 y.o. year old here for IP visit. Her is planned. She and the father of the baby are happy. Patient's last menstrual period was 02/11/2024 (exact date). She is certain of her LMP with regular cycles. is currently dated by LMP only. No concerns. She denies vaginal bleeding or cramping. FHR 145 via doppler O: Blood pressure 123/70, weight 72.6 kg (160 lb), last menstrual period 02/11/2024. See OB physical and labs. No results found for: ABORH Lab Results Component Value Date RH Positive 04/30/2024 A: at 12w1d weeks gestation. 1. Encounter for supervision of other normal , first trimester 2. 12 weeks gestation of 3. Screen for STD (sexually transmitted disease) P: Genprobe obtained today. Oriented to THoNE MG and anticipated course. Discussed collaborative practice and [facility] delivery. Reviewed healthy eating and normal weight gain in . Encouraged patient to push PO fluids. Counseled about warning signs of the first trimester and how to contact conference organizer provider. Discussed the benefits of breast feeding and strongly encouraged to consider this. Counseled regarding the diagnosis of anomalies. She was offered a referral to maternal medicine for nuchal lucency/[place] testing. She accepts the referral. NT US scheduled 05/13/24. RTO 4 weeks. The patient does not require anesthesia consult. This patient's VTE risk status is low. [place] Depression Scale: In the Past 7 Days I have been able to laugh and see the funny side of things.: As much as I always could I have looked forward with enjoyment to things.: As much as I ever did I have blamed myself unnecessarily when things went wrong.: No, never I have been anxious or worried for no good reason.: No, not at all I have felt scared or panicky for no good reason.: No, not at all Things have been getting on top of me.: No, I have been coping as well as ever I have been so unhappy that I have had difficulty sleeping.: Not at all I have felt sad or miserable.: No, not at all I have been so unhappy that I have been crying.: No, never The thought of harming myself has occurred to me.: Never [place] Depression Scale Total: 0 [place] SCREENING CHARGE (Clinic Only): [id number] Cecille Sibley CNM on 05/06/2024 at 3:21 PM EST 05/06/2024 - w1d - Amara Parrish MA EPDS - 0 Progress Notes - Clinical Lamb pport - 04/30/2024 - GA:11w2d 04/30/2024 - 11w2d - Tara Puga RN 04/30/24 Planned :Yes FOB name/age/phone #: Cm Wang, 30, Lives with: Spouse, daughter and step son 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 old female at 11w2d. This is Planned. The patient feels happy about the . The FOB is supportive and happy. Patient's last menstrual period was Patient's last menstrual period was 02/11/2024 (exact date). (exact date)., which would make her currently 11w2d with an Estimated Date of Delivery: 11/17/24. She is certain of her date. An ultrasound has not been ordered to confirm dating Patient has significant history of: per patient GBS positive in first , some elevated BP in Labor OB Past Medical History: Have you had or do you currently have: Diabetes? No Hypertension? Yes, on BP meds prior the first , no longer on meds Heart disease, Mitral valve Prolapse, or Rheumatic fever? No An Autoimmune disease such as Lupus or Rheumatoid Arthritis? No Epilepsy, Seizures, or Spells? No Migraine Headaches? No, one time this positional headache migraine, resolved none since Stroke or loss of function or sensation? No Additional Questions: Have you ever been treated for anxiety and/or depression? No Are you having problems with crying spells or loss of self-esteem? No Have you ever required psychiatric care? No Have you ever had hepatitis, liver disease or jaundice? No Have you ever been treated for blood clots in your veins, deep venous thrombosis, inflammation in the veins, thrombosis, phlebitis, pulmonary embolism or varicosities? No Have you had excessive bleeding after surgery or dental work? No Do you bleed more than other women after a cut or scratch? No Do you have a history of anemia? Yes, generally. Have you ever had Thyroid problems or taken Thyroid medications? No Do you have any other Endocrine Problems (ie. PCOS)? No Have you ever been in a major accident or suffered serious trauma? No Within the last year, has anyone hit, slapped, kicked or otherwise hurt you? No In the last year, has anyone forced you to have sex when you didn't want to? No Do you feel safe at home? Yes Have you ever received a blood transfusion? No Would you refuse a blood transfusion if a doctor judged to be medically necessary? No Would you rather than receive a blood transfusion? No If you answered yes to the above questions, is this for buddhism reasons? No Do you know what your blood type is or if you are Rh Negative? No Have you ever had abnormal antibodies in your blood? No Have you ever had asthma? No Have you every had Tuberculosis? No Have you ever had any breast problems? Yes, mastitis, on ABX Have you ever breast fed? Yes Have you ever had any gynecological surgical procedures such as cervical conization, LEEP procedure, Laser treatment, cryosurgery of the cervix or dilation and curettage, etc? No Have you had any other surgical procedures? Yes, colonoscopy WNL, for rectal bleeding Have you ever been hospitalized overnight for a non-surgical reason excluding normal delivery? No Have you ever had anesthesia complications? No Have you ever had an abnormal pap smear? No Do you have a history of abnormalties of the uterus? No Did your mother take LINWOOD or any other hormones when she was with you? No Did it take more than one year to become ? No Have you ever been evaluated or treated for infertility? No Is there a history of medical problems in your family which you feel might adversely affect your health or ? No Do you have any other problems we have not asked you about which you feel may be important for us to know for this ? No Do you currently have any of the following symptoms since your last menstrual period: Abdominal pain, blood in the stool or urine, chest pain, shortness of breath, coughing or vomiting up blood, your heart racing or skipping beats, nausea and/or vomiting, pain on urination, or vaginal discharge or vaginal bleeding? No OB Infection History: Do you object to being tested for Hepatitis B? No Do you object to being tested for HIV? No Do you feel that you are at high risk for coming contact with the AIDS virus? No Have you ever been treated for tuberculosis? No Have you ever received the BCG vaccine? No Have you ever had a positive skin test for Tuberculosis? No Do you live with someone who has Tuberculosis? No Have you ever been exposed to Tuberculosis? No Do you have Genital Herpes? No Does your partner have Genital Herpes? No Have you had a rash or viral illness since your last period? No Have you ever had Gonorrhea, Chlamydia, Syphilis, Venereal Warts, Trichomoniasis, Pelvic Inflammatory Disease (PID) or any other sexually transmitted disease? No Do you know if you are a Group B Streptococcus Carrier? No Did you have the Chicken Pox/Varicella? Yes Were you vaccinated against Chicken Pox/Varicella? No Have you had any other infectious diseases? No Daniel Wang has been instructed on the following: random urine drug screening initial workup and an initial urine drug screen has been ordered., She has been counseled regarding avoiding hazards, litter boxes, smoking, drug and alcohol use during Daniel Wang has also been informed of the washer engineer helper provider recommendation for first trimester nuchal lucency testing to be performed during her . Daniel Wang has also been made aware of the time sensitive nature for this testing to be completed. . The patient now has a gestational age of 11w2d. The patient would be due for this testing prior to 14 weeks gestation which would be on US booked on 05/13/24 at 8 am Ethnicity Based Genetic Testing has been reviewed and the [facility] information sheet has been provided to the patient in their After Visit Summary. The patient was also advised that genetic testing may not be covered by all insurances. The patients states that they understand this information. The patient states that she doesn't remember if she had the genetic screening for Horizon 14 done in the past during a previous . The following Labs have been ordered: Obstetric Panel, Varicella titer, Urine Culture, UDS, and Panorama without gender, patient doesn't want to do the genetic screening She is aware that her insurance may or may not cover Panorama test and discussed beltran only liu for test(s) - info given today in her after visit summary . She would like to proceed with testing. Electronically signed by: Tara Puga RN 04/30/24 10:11 AM EST Progress Notes - Clinical Lamb pport - 03/20/2024 - GA:5w3d 03/20/2024 - 5w3d - Tara Puga RN Images from the original note were not included. POC , urine manually resulted Order: [id number] Status: Final result Visible to patient: Yes (not seen) Next appt: 04/30/2024 at 10:00 AM in Obstetrics and Gynecology (RN NURSE [facility]) Dx: Encounter for supervision of other no... 0 Result Notes Component Ref Range & Units 03/20/24 1519 HCG, Ur POC Negative Positive Abnormal POC hCG Int QC Pass? Yes Yes Specimen Collected: 03/20/24 15:19 EST Last Resulted: 03/20/24 15:19 EST Lab Flowsheet Order Details View Encounter Lab and Collection Details LMP date: 02/10/24 EGA: 5W3D EDC: 11/17/24. Pt is very excited doesn't want to know the gender Current medication list reviewed. Patient is not taking medication that may have an adverse effect during the . Allergies: Cyclamycin Pharmacy: [facility] Any current medical problems?: no Any previous complications?: no (1st send prescription for Aspirin 81mg 1 tab po daily if between 6 week - 13w6d gestation. If BMI 30 or greater, CHTN, Hx Pre-E. Twins: can wait till 12 weeks to order as will need 162mg daily) Patient is not currently being treated for insulin dependent diabetes. Patient is not currently being treated for hypertension. Patient doesn't have a history of ectopic , doesn't have a history of miscarriage, and doesn't have a history of termination. Appointment is to be made with MD prior to OB work up if pt is currently being treated for hypertension. Patients currently being treated for diabetes should establish care with a [facility] provider. OK to see CNM for IP visit? Yes Pre- Weight (if known): 161 lb Height: 5'7.75 Pre- BMI: 24.66 Recommended weight gain: [place]ver: BMI 25.0 to 29.9 kg/m2 (overweight) - Weight gain 15 to 25 lb (7.0 to 11.5 kg) (BMI equal or greater than 50 prior to or at 28 weeks needs to deliver at [facility]). Pre BMI of 50 or more should continue to be transferred to [facility] prior to establishing care. Pt was counseled that we only deliver at [facility]. She is aware that if she would like to deliver at [facility] will need to establish care with a [facility] provider. Schedule Workup for 10 weeks: In Person scheduled 04/30/24 @10am Schedule IP at 12 weeks with appropriate provider: scheduled 05/06/24 @3pm Warning signs of vaginal bleeding and pelvic pain were reviewed. The patient was advised to call the office, day or night, if these symptoms occur. Patient instructions relating to nausea and vomiting in the 1st trimester, what to avoid in (alcohol, drugs, smoking, environmental exposures), dietary and medication restrictions and self care for colds and flu given to patient. A prescription for Vitamins Plus was sent to the pharmacy. The patient understands all instructions and is in agreement with plan of care. Last Filed Vital Signs Vital Sign Reading Time Taken Comments Blood Pressure 112/78 10/29/2024 3:29 PM EDT Pulse 90 10/29/2024 3:29 PM EDT Temperature - - Respiratory Rate 16 10/29/2024 3:29 PM EDT Oxygen Saturation - - Inhaled Oxygen Concentration - - Weight 82.6 kg (182 lb 3.2 oz) 10/29/2024 3:29 P M EDT Height 165.1 cm (5' 5 ) 10/22/2024 4:04 PM EDT Body Mass Index 30.32 10/22/2024 4:04 PM EDT Plan of Treatment Upcoming Encounters Date Type Department Care Team (Late st Contact Info) Description 11/05/2024 4:00 PM EDT Routine Obstetrics and Gynecology - [address] [phone] Moraima Frias CN [address] [place] [address] 11/12/2024 1:15 PM EDT Routine Obstetrics and Gynecology - [address] [phone] Moraima Frias CN [address] [place] [address] 11/18/2024 10:15 AM EDT Routine Obstetrics & Gynecology - [address] [phone] Kamran Paulino, VIVEK [address] [place] [address] Health Maintenance Due Date Last Done Comments COVID-19 Vaccine ( season) 2023 01/13/2021, 04/19/2020, 03/27/2020 Influenza Vaccine (#1) 2024 , 01/12/2023, 01/21/2021, Additional history exists Social Influencers of Health Screening 03/19/2025 03/19/2024 Cervical Cancer Screening: HPV 12/22/2025 12/22/2020 DTaP,Tdap,and Td Vaccines (11 - Td or Tdap) 08/29/2034 08/29/2024, 11/02/2021, 12/05/2017, Additional history exists HIB Vaccines Aged Out 07/09/1990, 040 04/1990, 06/12/1990, Additional history exists No longer eligible based on patient's age to complete this topic IPV Vaccines Completed 11/17/1993, 02/09, 07/09/1990, Additional history exists Hepatitis B Vaccines Completed 08/21/2000, 11/08/1999, 09/23/1999 HPV Vaccines Completed 09/29/2006, 05/11, 03/22/2006 Meningococcal ACWY Vaccine Completed 03/26/2007 HIV Screening Completed 04/30/2024 Hepatitis C Screening Completed 04/30/2024 Depression Screening Completed 10/23/2024 Hepatitis A Vaccines Aged Out No long er eligible based on patient's age to complete this topic Meningococcal B Vaccine Aged Out No l onger eligible based on patient's age to complete this topic Pneumococcal Vaccine: Pediatrics (0 to 5 Years) and At-Risk Patients (6 to 49 Years) Aged Out No longer eligible based on patient's age to complete this topic RSV Immunization Patients Under 20 months Aged Out No longer eligible based on patient's age to complete this topic Procedures Procedure Name Priority Date/Time Associated Diagnosis Comments US OB 14+ WKS SINGLE OR FIRST GESTATION Routine 10/28/2024 8:47 AM EDT Uterine size-date discrepancy in third trimester AMA (advanced maternal age) multigravida 35+, third trimester Encounter for maternal care for poor growth in culver in third trimester Encounter for suspected problem with growth ruled out STREP B PCR Routine 10/22/2024 4:37 PM EDT screening for streptococcus B CBC WITH AUTO DIFFERENTIAL Routine 08/29/2024 1:28 PM EDT 24 weeks gestation of Encounter for screening of mother GTT GESTATIONAL 1 HOUR Routine 1:28 PM EDT 24 weeks gestation of Encounter for screening of mother CBC AND DIFFERENTIAL Routine 08/29/2024 1:28 PM EDT 24 weeks gestation of Encounter for screening of mother TREPONEMA PALLIDUM ANTIBODY WITH REFLEX TO RPR AND PARTICLE AGGLUTINATION Routine 08/29/2024 1:28 PM EDT Encounter for screening of mother GLUCOSE TOLERANCE TEST, 1H GESTATION Routine 08/29/2024 1:28 PM EDT 24 weeks gestation of Encounter for screening of mother HEPATITIS C ANTIBODY Routine 04/30/2024 11:38 AM EST Encounter for supervision of other normal , first trimester HIV 1, 2 ANTIBODY, P24 ANTIGEN WITH REFLEX TO DIFFERENTIATION Routine 04/30/2024 11:38 AM EST Encounter for supervision of other normal , first trimester HM HPV Routine 12/22/2020 from Last 3 Months or Most Recently Relevant to Health Maintenance Results * US OB 14+ Wks Single or First Gestation (10/28/2024 8:47 AM EDT) Anatomical Region Laterality Modality Body Ultrasound 10/28/2024 8:07 AM EDT Impressions 10/28/2024 10:20 AM EDT Recommendations/Plan: No additional ultrasounds have been scheduled. Follow up as clinically indicated. - Repeat gestational diabetes screening is recommended due to AC at the 99th percentile. - Narrative 10/28/2024 10:20 AM EDT OBSTETRICS REPORT (Signed Final 10/28/2024 10:20 am) PATIENT INFO: ID #: [id number] : [birth year] (34 yrs)(F) Name: DANIEL WANG Visit Date: 10/28/2024 08:07 am PERFORMED BY: Attending: Maria Guadalupe Collazo MD Performed By: Blake Fleming RDMS Referred By: Cecille Sibley C.N.M Ref. Address: [address] [place] [address] Location: [facility] SERVICE(S) PROVIDED: OB Complete >=14 weeks [address]230 INDICATIONS: Advanced maternal age in multigravida, third O09.523 trimester Uterine size-date discrepancy, third trimester O26.843 Maternal care for other known or suspected O36.5954 poor growth, third trimester, culver Encounter for suspected problem with Z03.74 growth ruled out 37 weeks gestation of Z3A.37 TECHNIQUE/SCAN QUALITY: Technique: Transabdominal Scan Satisfactory Quality: OB HISTORY: : 2 Term: 1 Livin VITAL SIGNS: Weight (lb) Height BMI 180 5'5 29.95 EVALUATION: Number Of Fetuses: 1 Heart Rate(bpm): 133 Cardiac Activity: Observed Presentation: Cephalic Placenta Location: Posterior Appearance: Grade 2 Relation to CVX: No previa Amniotic Fluid JING FV: Within Normal Limits LUQ(cm) LLQ(cm) 4.29 2.97 JING Sum(cm) %Tile Largest Pocket(cm) 7.26 4.5 4.29 Comment: A >2 x 2 cm pocket of fluid is noted. BIOMETRY: BPD: 86.9 mm G.Age: 35w 1d 13 % HC: 325.4 mm G.Age: 36w 6d 19 % AC: 359 mm G.Age: 39w 6d > 99 % FL: 72.4 mm G.Age: 37w 0d 47 % CER: 51.9 mm G.Age: N/A > 95 % LV: 4.7 mm CM: 6.8 mm CI: 72.2 % 70 - 86 FL/HC: 22.2 % 20.8 - 22.6 HC/AC: 0.91 0.92 - 1.05 FL/BPD: 83.3 % 71 - 87 FL/AC: 20.2 % 20 - 24 Est. FW: 3442 gm 7 lb 9 oz 84 % GESTATIONAL AGE: LMP: 37w 1d Date: 02/11/24 BALJIT: 11/17/24 U/ Today: 37w 2d BALJIT: 11/16/24 Best: 37w 1d Det. By: LMP (02/11/24) BALJIT: 11/17/24 STANDARD ANATOMY: Cranium: Normal appearance Ventricles: Normal appearance Cerebellum: Normal appearance Posterior Fossa: Normal appearance Heart: Normal appearance Stomach: Normal appearance Abdominal Wall: Normal appearance Kidneys: Normal appearance Bladder: Normal appearance Spine: Normal appearance COMMENTS: Ms. Florentino is being seen for assessment of growth for uterine size discrepency. - Her medical history is not contributory. Her obstetrical history is significant for one full term vaginal delivery. - She had cell free DNA screening. Results were low-risk for all conditions assessed. - Ultrasound findings: The estimated weight is 3,442 grams, at the 84th percentile. The abdominal circumference is at the 99th percentile. The amniotic fluid index is 7.26 cm, appropriate for the gestational age. - Maria Guadalupe Collazo MD Electronically Signed Final Report 10/28/2024 10:20 am Procedure Maria Guadalupe Jacobson MD - 10/28/2024 OBSTETRICS REPORT (Signed Final 10/28/2024 10:20 am) PATIENT INFO: ID #: [id number] : [birth year] (34 yrs)(F) Name: DANIEL WANG Visit Date: 10/28/2024 08:07 am PERFORMED BY: Attending: Maria Guadalupe Collazo MD Performed By: Blake Fleming [facility] Referred By: Cecille Sibley C.N.M Ref. Address: [address] [place] [id number] Location: [facility] SERVICE(S) PROVIDED: OB Complete >=14 weeks 24343 INDICATIONS: Advanced maternal age in multigravida, third O09.523 trimester Uterine size-date discrepancy, third trimester O26.843 Maternal care for other known or suspected O36.5930 poor growth, third trimester, culver Encounter for suspected problem with Z03.74 growth ruled out 37 weeks gestation of Z3A.37 TECHNIQUE/SCAN QUALITY: Technique: Transabdominal Scan Satisfactory Quality: OB HISTORY: : 2 Term: 1 Livin VITAL SIGNS: Weight (lb) Height BMI 180 5'5 29.95 EVALUATION: Number Of Fetuses: 1 Heart Rate(bpm): 133 Cardiac Activity: Observed Presentation: Cephalic Placenta Location: Posterior Appearance: Grade 2 Relation to CVX: No previa Amniotic Fluid JING FV: Within Normal Limits LUQ(cm) LLQ(cm) 4.29 2.97 JING Sum(cm) %Tile Largest Pocket(cm) 7.26 4.5 4.29 Comment: A >2 x 2 cm pocket of fluid is noted. BIOMETRY: BPD: 86.9 mm G.Age: 35w 1d 13 % HC: 325.4 mm G.Age: 36w 6d 19 % AC: 359 mm G.Age: 39w 6d > 99 % FL: 72.4 mm G.Age: 37w 0d 47 % CER: 51.9 mm G.Age: N/A > 95 % LV: 4.7 mm CM: 6.8 mm CI: 72.2 % 70 - 86 FL/HC: 22.2 % 20.8 - 22.6 HC/AC: 0.91 0.92 - 1.05 FL/BPD: 83.3 % 71 - 87 FL/AC: 20.2 % 20 - 24 Est. FW: 3442 gm 7 lb 9 oz 84 % GESTATIONAL AGE: LMP: 37w 1d Date: 02/11/24 BALJIT: 11/17/24 / Today: 37w 2d BALJIT: 11/16/24 Best: 37w 1d Det. By: LMP (02/11/24) BALJIT: 11/17/24 STANDARD ANATOMY: Cranium: Normal appearance Ventricles: Normal appearance Cerebellum: Normal appearance Posterior Fossa: Normal appearance Heart: Normal appearance Stomach: Normal appearance Abdominal Wall: Normal appearance Kidneys: Normal appearance Bladder: Normal appearance Spine: Normal appearance COMMENTS: Ms. Florentino is being seen for assessment of growth for uterine size discrepency. - Her medical history is not contributory. Her obstetrical history is significant for one full term vaginal delivery. - She had cell free DNA screening. Results were low-risk for all conditions assessed. - Ultrasound findings: The estimated weight is 3,442 grams, at the 84th percentile. The abdominal circumference is at the 99th percentile. The amniotic fluid index is 7.26 cm, appropriate for the gestational age. - Maria Guadalupe Collazo MD Electronically Signed Final Report 10/28/2024 10:20 am IMPRESSION: Recommendations/Plan: No additional ultrasounds have been scheduled. Follow up as clinically indicated. - Repeat gestational diabetes screening is recommended due to AC at the 99th percentile. - Moraima Frias CNM IMG OB US PROCEDURES Final Res ult * Strep B molecular study (10/22/2024 4:37 PM EDT) [facility] Grp B Strep PCR Not Detected Not Detected LAB MICROBIOLOGY METHOD 10/24/2024 8:46 AM EDT [facility] Swab Pooled specimen from vaginal introitus and rectal swab / Unknown Non-blood Collection / Unknown 10/22/2024 4:37 PM EDT 10/22/2024 4:37 PM EDT Moraima DOYLE LAB BLOOD ORDERABLES Final Res ult Performing Organization Address [facility]/ZIP Co de Phone Number [facility] [address] [place] [address], [place] [phone] * Treponema pallidum antibody with reflex to RPR and particle agglutination (08/29/2024 1:28 PM EDT) [facility] T. Pallidum Antibodies Negative Negative LAB CHEMISTRY METHOD 08/29/2024 3:55 PM EDT [facility] Blood Venous blood specimen / Unknown Venipuncture / Unknown 08/29/2024 1:28 PM EDT 08/29/2024 1:28 PM EDT Berenice DOYLE LAB BLOOD ORDERABLES Final R esult Performing Organization Address [facility]/ZIP Co de Phone Number [facility] [address] [place] [address], [place] [phone] * GTT gestational 1 hour (08/29/2024 1:28 PM EDT) [facility] Glucose, 1 HR Gestational 108 See Comment mg/dL LAB CHEMISTRY METHOD 08/29/2024 3:59 PM EDT [facility] Blood Venous blood specimen / Unknown Venipuncture / Unknown 08/29/2024 1:28 PM EDT 08/29/2024 1:28 PM EDT Narrative [facility] - 08/29/2024 3:59 PM EDT Gestational Diabetes Challenge Reference Range: 1 hour Glucose <140 mg/dL us Berenice Romano [facility] BLOOD ORDERABLES Final R esult [facility] [address] [place] [address], [place] [phone] * (ABNORMAL) CBC auto differential (08/29/2024 1:28 PM EDT) [facility] WBC 11.5(H) 4.8 - 10.8 K/mcL LAB HEMETOLOGY METHOD 08/29/2024 3:20 PM EDT [facility] RBC 3.50(L) 3.80 - 4.80 M/mcL LAB HEMETOLOGY METHOD 08/29/2024 3:20 PM EDT [facility] Hemoglobin 11.6 11.5 - 16.0 g/dL LAB HEMETOLOGY METHOD 08/29/2024 3:20 PM EDT [facility] Hematocrit 34.8(L) 35.0 - 47.0 % LAB HEMETOLOGY METHOD 08/29/2024 3:20 PM EDT [facility] MCV 98.9(H) 79.0 - 98.0 FL LAB HEMETOLOGY METHOD 08/29/2024 3:20 PM EDT [facility] MCH 33.0(H) 27.0 - 32.0 pcg LAB HEMETOLOGY METHOD 08/29/2024 3:20 PM EDT [facility] MCHC 33.3 32.0 - 37.0 g/dL LAB HEMETOLOGY METHOD 08/29/2024 3:20 PM EDT [facility] RDW 13.7 11.0 - 15.0 % LAB HEMETOLOGY METHOD 08/29/2024 3:20 PM EDT [facility] Platelets 224 130 - 400 K/mcL LAB HEMETOLOGY METHOD 08/29/2024 3:20 PM EDT [facility] MPV 9.3 7.0 - 11.0 FL LAB HEMETOLOGY METHOD 08/29/2024 3:20 PM EDT [facility] NRBC 0.0 <1.0 % LAB HEMETOLOGY METHOD 08/29[facility]2024 [facility] NR[facility] Absolute 0.00 <0.10 K/mcL LAB HEMETOLOGY METHOD 08/29/2024 3:20 PM EDT [facility] Neutrophils Relative 74.5 % LAB HEMETOLOGY METHOD 08/29/2024 3:[facility] Lymphocytes Relative 15.2 % LAB HEMETOLOGY METHOD 08/29/2024 3:20 PM [facility] Monocytes Relative 6.6 % LAB HEMETOLOGY METHOD 08/29/2024 3:20 PM [facility] Eosinophils Relative 2.0 % LAB HEMETOLOGY METHOD 08/29/2024 3:20 PM EDT [facility] Basophils Relative 0.4 % LAB HEMETOLOGY METHOD 08/29/2024 3:20 PM EDT [facility] Immature Granulocytes Relative 1.3 % LAB HEMETOLOGY METHOD 08/29/2024 3:20 PM [facility] Neutrophils Absolute 8.52(H) 1.50 - 7.00 K/mcL LAB HEMETOLOGY METHOD 08/29/2024 3:20 PM EDT [facility] Lymphocytes Absolute 1.74 1.00 - 5.00 K/mcL LAB HEMETOLOGY METHOD 08/29/2024 3:20 PM EDT [facility] Monocytes Absolute 0.76 0.20 - 1.00 K/mcL LAB HEMETOLOGY METHOD 08/29/2024 3:20 PM EDT [facility] Eosinophils Absolute 0.23 0.00 - 0.50 K/mcL LAB HEMETOLOGY METHOD 08/29/2024 3:20 PM EDT [facility] Basophils Absolute 0.05 0.00 - 0.20 K/mcL LAB HEMETOLOGY METHOD 08/29/2024 3:20 PM EDT [facility] Immature Granulocytes Absolute 0.15(H) 0.00 - 0.03 K/mcL LAB HEMETOLOGY METHOD 08/29/2024 3:20 PM EDT [facility] Blood Venous blood specimen / Unknown Venipuncture / Unknown 08/29/2024 1:28 PM EDT 08/29/2024 1:28 PM EDT us Berenice Romano [facility] BLOOD ORDERABLES Final R esult Performing Organization Address City/[facility]/ZIP Co de Phone Number [facility] [address] [place] [address], * Hepatitis C antibody (04/30/2024 11:38 AM EST) Hepatitis C Antibody Negative Negative LAB CHEMISTRY METHOD 04/30/2024 3:59 PM EST [facility] Blood Venous blood specimen / Unknown Venipuncture / Unknown 04/30/2024 11:38 AM EST 04/30/2024 11:38 AM EST us Cecille Sibley [facility] BLOOD ORDERABLES Final Result [facility] [address] [place] [address], [place] [phone] * HIV 1,2 antibody, p24 antigen with reflex to differentiation (04/30/2024 11:38 AM EST) [facility] HIV Combo AB/AG Negative Negative LAB CHEMISTRY METHOD 04/30/2024 4:00 PM EST [facility] Blood Venous blood specimen / Unknown Venipuncture / Unknown 04/30/2024 11:38 AM EST 04/30/2024 11:38 AM EST Narrative [facility] - 04/30/2024 4:00 PM EST This assay is a 4th generation assay allowing for earlier detection of HIV infection by detecting the presence of the HIV-1 p24 antigen as well as the traditional antibodies to HIV type 1 (including group O) and type 2. Use of a 4th generation assay is the current CDC recommendation for HIV screening. [facility] BLOOD ORDERABLES Final Result [facility] [address] [place] [address], [place] [phone] * Cervical Cancer Screening: HPV (12/22/2020) [facility] Cervical Cancer Screening: HPV negative, abstracted Historical Provider HEALTH MAINTENANCE Final Result from Last 3 Months or Most Recently Relevant to Health Maintenance Insurance * Guarantor: aDniel Wang Account Type Relation to Patient Date of Phone Billing Address Personal/Family Self 1990 [address] [facility] [place] [address] [employer] [facility] Care Teams Detacher Relationship Specialty Start Date End Date Sergio Obregon MD [address] [place] [address] PCP - General Internal Medicine 02/14/24
--- OUTSIDE RECORDS SUMMARY | 2024-11-04 08:05 | XMS_ITS | Patient Health Record ---
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 Name Role Phone JASMINE PHAN Primary Care Provider Alejo Castaneda [phone] Allergies Allergen (clinical drug ingredient) Drug/Non Drug Allergy documented on EMR Reaction Allergy Type Onset Date Status clindamycin Clindamycin Phosphate Unknown Drug Allergy Active Reason For Referral No Information Medications Medication SIG (Take, Route, Fr equency, Duration) Notes Start Date End Date Status Acyclovir 400 mg one tab orally as needed Active Sronyx 0.1-20 MG-MCG 1 tablet Orally Onc e a day for 28 day(s) Active Immunizations Vaccine Route Administration Date Status Comme nts Influenza Unknown 01/08/2018 Administered Social History Tobacco Use: Social History Observation Description Date Details (start date - stop date) Never Smoker NA - NA Tobacco Use/Smoking Question Answer Notes Patient is [...] Never (0 point) Points 4 Interpretation Positive Section Notes: Nonsmoker; no sig alcohol Problems Problem Type SNOMED Code ICD Code Onset Dates Problem Status W/U Status Risk Notes Problem [id number] Rectal bleeding (K62.5) Active confirmed Encounters Encounter Location Date Provider Diagnosis [facility] [address] [place] [address] 03/20/2024 Alejo Diallo Plan Of Treatment Future Test Test Name Order Date COLONOSCOPY 01/15/2019 Insurance Providers Payer Name Payer Address Payer Phone Subscriber Number Group Number Insured Name Patient Relationship to Insured Coverage Start Date Coverage End Date [facility] [address] [address] [place] [address] [id number] DANIEL NANCE Self - patient is the insured Medical (General) History Medical History History ICD Code Denies NH,DM,CVA,Lung disease,renal dise ase Surgical History Surgery Date(Month/Year)
[2024-11-04 11:43] LABS: Glucose 1 Hour 139 mg/dL
== END 2024-11-04 08:03 | disposition home or self-care (01) ==
LOC: HO.LAB 08:02
PROVIDERS: PCP Nurse Practitioner Family; Visit Provider Registered Nurse
DX: O26.843 Uterine size-date discrepancy, third trimester (principal)
CPT/HCPCS: 36415; 82951

== ENCOUNTER 2025-02-12 14:37 | Outpatient (REF) | payer OTHER, SELFPAY ==
[2025-02-12 15:01] LABS: MANUAL DIFF FLAG NO
[2025-02-12 15:57] LABS: Hematocrit 39.5 % (37.0-47.0); Hemoglobin 14.0 g/dl (12.0-16.0); Imm Gran Abs Auto 0.02 X10*3/uL (0.00-0.03); Imm Gran Pct Auto 0.3 % (0.0-0.4); Lymphocytes Absolute Auto 2.1 X10*3/uL (1.2-4.9); Mean Corpuscular HGB Conc 35.4 g/dl (31.0-35.0); Mean Corpuscular Hemoglobin 31.8 pg (27.0-33.0); Mean Corpuscular Volume 89.8 fL (80.0-98.0); NRBC Abs Auto 0.000 X10*3/uL (0.0-0.012); NRBC Pct Auto 0.0 /100WBC (0.0-0.2); Platelet Count 306 X10*3/uL (160-400); Red Blood Count 4.40 X10*6/uL (4.20-5.50); White Blood Count 7.2 X10*3/uL (4.8-10.8)
[2025-02-12 16:43] LABS: Iron 65 mcg/dL (30-160); Percent Iron Saturation 22 % (15-50); Total Iron Binding Capacity 294 mcg/dL (228-428); Unsaturated Iron Binding 229 ug/dL
[2025-02-12 16:46] LABS: Ferritin 108 ng/mL (10-122)
--- OUTSIDE RECORDS SUMMARY | 2025-02-12 17:46 | XMS_ITS | Clinical Summary ---
Author Organization [facility] Address [address] [place] [phone] Phone Care Team Providers Care Etched Circuit Processor Name Role Phone Sergio Obregon MD Primary Care Provider [phone] Allergies Active Allergy Reactions Criticality Noted Date Comments Clindamycin Hives,Swelling High 06/26/2008 Medications vit,bryant 87-ybhp-dhyyl 27 mg iron- 1 mg tablet Take 1 tablet by mouth 1 (one) time each day. 30 each 12 03/20/2024 Active ACYCLOVIR ORAL Take by mouth. Active norethindrone (AARON,MUSA,HE ATHER,MICRONOR) 0.35 mg tablet Take 1 tablet (0.35 mg total) by mouth 1 (one) time each day. 84 tablet 1 01/06/2025 Active Active Problems Problem Noted Date Diagnosed Date Normal in multigravida in first trimes ter 11/18/2024 Rectal bleeding 11/14/2024 Uterine size-date discrepancy in third trimester 10/22/2024 Overview (11/05/2024): 10/22- S<D, Growth US ordered Ultrasound findings: The estimated weight is 3,442 grams, at the 84th percentile. The abdominal circumference is at the 99th percentile. The amniotic fluid index is 7.26 cm, appropriate for the gestational age. -Recommendation- repeat GTT- 1hr GTT is 139- done at [facility] 11/05/2024- Risk of shoulder dystocia reviewed with pt. She wants to try for a vaginal Herpes zoster without complication 10/22/2024 Overview (10/22/2024): 10/2024- rash to RUQ and upper back. Sees by PCP and started on treatment for shingles. Taking Acyclovir- sx have mostly resolved and rash dried out. Multigravida of advanced maternal age in second trimester 06/03/2024 Overview (11/05/2024): ASA 162 mg daily at 12w through delivery Referral for NIPT if desired Detailed US 3rd trimester growth US if maternal age 40 or greater Weekly NST at 36 weeks Encounter for supervision of other normal , first trimester 04/30/2024 Overview (11/05/2024): 1. [place] site: [facility] ObGyn: [address] [place] [address] ([phone]) 2. Delivery site: [facility] 3. Mobile Mommas: No 4. Dating criteria: LMP 5. Blood type: O+ 6. Genetic screening: Date: Result: Panorama: Low Risk Horizon: Declined Nuchal: wnl Survey: WNL MSAFP: neg 6. GBS: Negative Date: 10/21 7. FOB name: Cm 8. Plans A. Epidural or other pain management - Epidural B. Labor support identified - Cm Fall Tdap - Date: 08/29 Flu - Date: D. Breast or Bottle feed: E. Baby's name - It's a Campbell! F. Circumcision - yes, if male 9. Hospital Course: Hemorrhoids 04/30/2024 Overview (04/30/2024): Rectal bleeding d/t hemorrhoids, 2019 colonoscopy done benign Spondylolisthesis, grade 1 06/04/2008 Overview (03/15/2024): Eval'd at [facility], PT recommended Resolved Problems Problem Noted Date Diagnosed Date Resolved Date Maternal varicella, non-immune 04/30/2024 04/30/2024 Overview (04/30/2024): Per patient had chicken pox 2 times Encounters Date Type Department Care Team Description 01/06/2025 1:30 PM EDT Visit Obstetrics & Gynecology - [address] [phone] Kamran Paulino CNM Routine follow-up (Primary Dx); Encounter for screening for maternal depression; BCP ( control pills) initiation 11/28/2024 4:00 PM EDT Office Visit Obstetrics and Gynecology - [address] [phone] Hailee Rodriguez CNM Care and examination of lactating mother (Primary Dx); Mastitis associated with 11/23/2024 Telephone Obstetrics and Gynecology [address] [phone] Cecille Sibley CNM 11/18/2024 9:00 AM EDT Anesthesia Event [address] [phone] Anson Lezama MD 11/18/2024 7:36 AM EDT - 11/20/2024 12:15 PM EDT Hospital Encounter [address] [phone] Isa Gutiérrez MD Normal in multigravida in first trimester (Primary Dx); Rectal bleeding; Herpes zoster without complication; Uterine size-date discrepancy in third trimester; Multigravida of advanced maternal age in second trimester; Hemorrhoids, unspecified hemorrhoid type; Encounter for supervision of other normal , first trimester; Spondylolisthesis, grade 1 Discharge Disposition: Home or Self Care 11/18/[address] [phone] Nazia Alvarez CNM 11/12/2024 1:15 PM EDT Routine Obstetrics and Gynecology - [place] [address] [place] [phone] Moraima Frias, [place] Supervision of other normal , antepartum (Primary Dx); Multigravida of advanced maternal age in second trimester; 39 weeks gestation of from Last 3 Months Immunizations Immunization Administration Dates Next Due DTP 11/17/1993, 1,1989,07/31,1989 HUqQ-RAG-DHA (Pentacel) 2mo to less than 5yo 07/09/1990,06/12/1990 HPV, Quadrivalent 09/29/2006,05/23/2006,03/22/20 06 Hepatitis B Pediatric (Enger ix B; Recombivax HB) to less than 20 yo 08/21/2000,11/08/1999,09/23/1999 Hib (HbOC) 07/09/1990,06/12/1990 Influenza Quadravalent, MDCK , 0.5ml, with preservative (Flucelvax) 6mo and older 01/15/2020,01/19/2018,02/03/2017 Influenza Quadrivalent, 0.5m l, preservative free (Fluarix; FluLaval; Fluzone) ages 6mo and older (Afluria) 3yo and older 01/12/2023,01/21/2021,01/15/2020,01/19 Influenza Quadrivalent, with preservative (Fluzone; Afluria) 6mo and older 02/03/2017 Influenza trivalent, 0.5mL, preservative free (Fluarix; FluLaval; Fluzone) ages 6mo and older (Afluria) 3 years and older 02/15/2024,03/22/2006 Influenza trivalent, with pr eservative (Fluzone; Afluria) 6mo and older 01/08/2018,01/21/2014 Influenza, Unspecified 01/19/2018 MMR, measles mumps and rubel la Live (Priorix; M-M-R II) 12mo and older 07/05/1994,07/09/1990 Measles 08/08/2014 Meningococcal MCV4P 03/26/2007 Mumps 08/08/2014 OPV 11/17/1993, 1,1989,06/06 PPD Test 08/06/2007,09/14/2004 Rubella 07/02/2021,08/08/2014 Td Tetanus diptheria (Tdvax) 7yo and older 11/08/1999 Tdap Tetanus diptheria acell ular pertussis (Boostrix; Adacel) 7yo and older 08/29/2024,11/02/2021,12/05/2017,03/22 Varicella live (Varivax) 12m o and older 07/02/2021,09/26/2014 Surgical History Surgery Date Site/Laterality Comments TYMPANOSTOMY TUBE PLACEMENT 07/07/1990 PROCEDURE: HISTORICAL PE TUBES; COMMENT: DR. PAIGE @ [facility] OTHER SURGICAL HISTORY 2006 PROCEDURE: ---- OTHER [...] DX:Scoliosis (and kyphoscoli osis), idiopathic; COMMENT: saw ernas as child and had therapy. No issues [...] Father Seymour Coronary artery disease Father Seymour xochitl y 50's Hypertension Father Seymour Diabetes Maternal [...] you may not have stable housing? No 11/18/2024 Food Access & Nutrition Answer Date Rec orded Do you have access to a vari ety of food including fruits and vegetables? No 11/18/2024 Access to Healthcare Answer Date Record ed Within the last 3 months, ho w many times did you visit the emergency department for your medical care? 0 11/18/2024 Health Literacy Answer Date Recorded How often do you need to hav e someone help you when you read instructions, pamphlets, or other written material from your doctor or pharmacy? Never 11/18/2024 Caregiver: How often do you need to have someone help you when you read instructions, pamphlets, or other written material from your doctor or pharmacy? Not on file 11/18/2024 Financial Risk Answer Date Recorded How hard is it for you to pa y for the very basics like food, housing, medical care, and air conditioning / heating? Not very hard 11/18/2024 Transportation Answer Date Recorded Has the lack of transportati on kept you from meetings, work, or from getting things needed for daily living? No Has the lack of transportati on kept you from medical appointments or from getting medications? No 11/18/2024 Social Isolation Answer Date Recorded How often do you feel lonely or isolated from th ose around you? Never 11/18/2024 Food Risk Answer Date Recorded Within the past 12 months we worried whether our food would run out before we got money to buy more. Never true 11/18/2024 Within the past 12 months th e food we bought just didn't last and we didn't have money to get more. Never true 11/18/2024 Dependent Care Answer Date Recorded Do you need help finding or paying for care for your loved ones. For example, child development consultant or elderly care for an older adult? No 11/18/2024 Education Answer Date Recorded Do you think completing more education or training, like finishing a GED, going to college, or learning a trade, would be helpful for you? No 11/18/2024 Employment and Income Answer Date Recor ded During the last four weeks, have you been actively looking for work? No 11/18/2024 Living Situation Answer Date Recorded What is your living situation? 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 Not on file Not on file Not on file Obstetrics History Para Term AB IAB SAB Ectopic Multiple Livin g Live Births 2 2 2 0 0 0 2 2 Date Outcome GA Total Labor Labor/2nd/3rd Weight Sex Type Anes PTL Eliza A1 A5 Name Clin 2021 Term 39w 4d 4h 27m 4h 07m/0h 13m/0h 07m 3232 g (114 oz) F Vag-S pont Epidur al N Livin g 8 9 Moraima Currye s CNM Complications:None Delivery Location:[place] Comments:GBS+ 2024 Term 40w 1d 0h 10m 0h 10m 3580 g (126.3 oz) M Vag-S pont Epidur al N Livin g 8 9 Tanvi Nicole MD Complications:None Delivery Location:[facility] ([facility]) Last Filed Vital Signs Vital Sign Reading Time Taken Comments Blood Pressure 110/83 01/06/2025 1:36 PM EDT Pulse 84 01/06/2025 1:36 PM EDT Temperature 36.5 C (97.7 F) 11/20/2024 8:10 AM EDT Respiratory Rate 14 11/28/2024 4:00 PM EDT Oxygen Saturation 99% 11/20/2024 8:10 AM EDT Inhaled Oxygen Concentration - - Weight 72.4 kg (159 lb 9.6 oz) 01/06/2025 1:36 P M EDT Height 170.2 cm (5' 7 ) 01/06/2025 1:36 PM EDT Body Mass Index 25 01/06/2025 1:36 PM EDT Plan of Treatment Health Maintenance Due Date Last Done Comments COVID-19 Vaccine ( season) 2024 01/13/2021, 04/19/2020, 03/27/2020 Influenza Vaccine (#1) 2024 , 01/12/2023, 01/21/2021, Additional history exists Social Influencers of Health Screening 11/18/2025 11/18/2024 Cervical Cancer Screening: HPV 12/22/2025 12/22/2020 DTaP,Tdap,and Td Vaccines (11 - Td or Tdap) 08/29/2034 08/29/2024, 11/02/2021, 12/05/2017, Additional history exists RSV Immunization Adult Patients (1 - 1-dose 75+ series) 2064 HIB Vaccines Aged Out 07/09/1990, 04/1990, 06/12/1990, Additional history exists No longer eligible based on patient's age to complete this topic IPV Vaccines Completed 11/17/1993, 11/2 12/1990, 07/09/1990, Additional history exists MMR Vaccines Completed 07/05/1994, 07/09/1990 Hepatitis B Vaccines Completed 08/21/2000, 11/08/1999, 09/23/1999 HPV Vaccines Completed 09/29/2006, 05/11, 03/22/2006 Meningococcal ACWY Vaccine Completed 03/26/2007 Varicella Vaccines Aged Out 07/02/2021, 09/26/2014 No longer eligible based on patient's age to complete this topic HIV Screening Completed 04/30/2024 Hepatitis C Screening Completed 04/30/2024 Depression Screening Completed 12/30/2024 Hepatitis A Vaccines Aged Out No long [...] Procedure Name Priority Date/Time Associated Diagnosis Comments EXTERNAL ULTRASOUND REPORT 11/21/2024 CBC WITH AUTO DIFFERENTIAL Routine 11/19/2024 6:18 AM EDT CBC AND DIFFERENTIAL Routine 11/19/2024 6:18 AM EDT SST - GOLD Routine 11/19/2024 6:16 AM EDT EXTRA TUBES Routine 11/19/2024 6:16 AM EDT TH AN NERVE BLK LUMBAR EPIDURAL (NO CHARGE) Routine 11/18/2024 9:23 AM EDT TREPONEMA PALLIDUM ANTIBODY WITH REFLEX TO RPR AND PARTICLE AGGLUTINATION Routine 11/18/2024 8:37 AM EDT TYPE AND SCREEN STAT 11/18/2024 8:36 AM EDT COMPLETE BLOOD COUNT STAT 11/18/2024 8:36 AM EDT HEPATITIS C ANTIBODY Routine 04/30/2024 11:38 AM EST Encounter for supervision of other normal , first trimester HIV 1, 2 ANTIBODY, P24 ANTIGEN WITH REFLEX TO DIFFERENTIATION Routine 04/30/2024 11:38 AM EST Encounter for supervision of other normal , first trimester HM HPV Routine 12/22/2020 from Last 3 Months or Most Recently Relevant to Health Maintenance Results * External Ultrasound Report (11/21/2024) Anatomical Region Laterality Modality Ultrasound us Provider Onbase MD REID US PROCEDURES Final Resul t * (ABNORMAL) CBC auto differential (11/19/2024 6:18 AM EDT) WBC 16.1(H) 4.8 - 10.8 K/mcL LAB HEMETOLOGY METHOD 11/19/2024 6:47 AM [facility] RBC 3.50(L) 3.80 - 4.80 M/mcL LAB HEMETOLOGY METHOD 11/19/2024 6:47 AM [facility] Hemoglobin 11.6 11.5 - 16.0 g/dL LAB HEMETOLOGY METHOD 11/19/2024 6:47 AM [facility] Hematocrit 33.9(L) 35.0 - 47.0 % LAB HEMETOLOGY METHOD 11/19/2024 6:47 AM [facility] MCV 96.0 79.0 - 98.0 FL LAB HEMETOLOGY METHOD 11/19/2024 6:47 AM [facility] MCH 32.9(H) 27.0 - 32.0 pcg LAB HEMETOLOGY METHOD 11/19/2024 6:47 AM [facility] MCHC 34.2 32.0 - 37.0 g/dL LAB HEMETOLOGY METHOD 11/19/2024 6:47 AM [facility] RDW 14.0 11.0 - 15.0 % LAB HEMETOLOGY METHOD 11/19/2024 6:47 AM [facility] Platelets 171 130 - 400 K/mcL LAB HEMETOLOGY METHOD 11/19/2024 6:47 AM [facility] MPV 10.0 7.0 - 11.0 FL LAB HEMETOLOGY METHOD 11/19/2024 6:47 AM [facility] NRBC 0.0 <1.0 % LAB HEMETOLOGY METHOD 11/19/2024 6:47 AM [facility] NRBC Absolute 0.00 <0.10 K/mcL LAB HEMETOLOGY METHOD 11/19/2024 6:47 AM [facility] Neutrophils Relative 74.6 % LAB HEMETOLOGY METHOD 11/19/2024 6:47 AM [facility] Lymphocytes Relative 16.7 % LAB HEMETOLOGY METHOD 11/19/2024 6:47 AM [facility] Monocytes Relative 6.8 % LAB HEMETOLOGY METHOD 11/19/2024 6:47 AM [facility] Eosinophils Relative 1.1 % LAB HEMETOLOGY METHOD 11/19/2024 6:47 AM [facility] Basophils Relative 0.2 % LAB HEMETOLOGY METHOD 11/19/2024 6:47 AM [facility] Immature Granulocytes Relative 0.6 % LAB HEMETOLOGY METHOD 11/19/2024 6:47 AM [facility] Neutrophils Absolute 12.04(H) 1.50 - 7.00 K/mcL LAB HEMETOLOGY METHOD 11/19/2024 6:47 AM [facility] Lymphocytes Absolute 2.70 1.00 - 5.00 K/mcL LAB HEMETOLOGY METHOD 11/19/2024 6:47 AM [facility] Monocytes Absolute 1.10(H) 0.20 - 1.00 K/mcL LAB HEMETOLOGY METHOD 11/19/2024 6:47 AM [facility] Eosinophils Absolute 0.17 0.00 - 0.50 K/mcL LAB HEMETOLOGY METHOD 11/19/2024 6:47 AM [facility] Basophils Absolute 0.04 0.00 - 0.20 K/[facility] LAB HEMETOLOGY METHOD 11/19/2024 6:47 AM EDT [facility] Immature Granulocytes Absolute 0.09(H) 0.00 - 0.03 K/[facility] LAB HEMETOLOGY METHOD 11/19/2024 6:47 AM EDT [facility] Blood Venous blood specimen / Unknown Venipuncture / Unknown 11/19/2024 6:18 AM EDT 11/19/2024 6:23 AM EDT us Raul Torres MD LAB BLOOD ORDERABLES Final Re sult Performing Organization Address City/[facility]/ZIP Co de Phone Number [facility] [address] [place] [address], [place] [phone] * SST tube (11/19/2024 6:16 AM EDT) Extra Tube Hold for add-ons. 11/19/2024 8:01 AM EDT [facility] Comment:Auto resulted. Blood Venous blood specimen / Unknown 11/19/2024 6:16 AM EDT 11/19/2024 6:24 AM EDT us Isa Ramirez MD LAB BLOO D ORDERABLES Final Result Performing Organization Address City/[facility]/ZIP Co de Phone Number [facility] [address] [place] [address], [place] [phone] * TH AN NERVE BLK LUMBAR EPIDURAL (NO CHARGE) (11/18/2024 9:23 AM EDT) Narrative Anson Lezama MD - 11/18/2024 9:23 AM EDT Anson Lezama MD 11/18/2024 9:24 AM Epidural Block Patient location during procedure: OB Start time: 11/18/2024 9:07 AM End time: 11/18/2024 9:12 AM Reason for block: labor epidural Staffing Performed: anesthesiologist Anesthesiologist: Anson Lezama MD Performed by: Anson Lezama MD Authorized by: Anson Lezama MD Preanesthetic Checklist Completed: patient identified, IV checked, risks and benefits discussed, surgical consent, monitors and equipment checked, pre-op evaluation and timeout performed Epidural Patient Position: sitting Monitoring: heart rate, continuous pulse ox and NIBP Approach: midline Vertebral Space: lumbar Lumbar Location: L3-4 Needle Needle type: Tuohy Needle gauge: 17 G Needle length: 8.5 cm Needle insertion depth: 4 cm Catheter at skin depth: 10 cm Test dose: negative and lidocaine 1.5% with epinephrine 1-to-200,000 Assessment Events: negative aspiration for heme and no paresthesia on injection Anson Lezama MD ANESTHESIA ORDERABLES Final Re sult * Treponema pallidum antibody with reflex to RPR and particle agglutination (11/18/2024 8:37 AM EDT) Pathologist [facility] T. Pallidum Antibodies Negative Negative LAB CHEMISTRY METHOD 11/18/2024 10:27 AM EDT [facility] Blood Venous blood specimen / Unknown Venipuncture / Unknown 11/18/2024 8:37 AM EDT 11/18/2024 8:42 AM EDT us Raul Torres MD LAB BLOOD ORDERABLES Final Re sult [facility] [address] [place] [address], [place] [phone] * (ABNORMAL) Complete blood count (11/18/2024 8:36 AM EDT) WBC 12.8(H) 4.8 - 10.8 K/[facility] LAB HEMETOLOGY METHOD 11/18/2024 8:47 AM EDT [facility] RBC 4.00 3.80 - 4.80 M/[facility] LAB HEMETOLOGY METHOD 11/18/2024 8:47 AM EDT [facility] Hemoglobin 13.1 11.5 - 16.0 g/dL LAB HEMETOLOGY METHOD 11/18/2024 8:47 AM EDT [facility] Hematocrit 37.9 35.0 - 47.0 % LAB HEMETOLOGY METHOD 11/18/2024 8:47 AM EDT [facility] MCV 95.2 79.0 - 98.0 FL LAB HEMETOLOGY METHOD 11/18/2024 8:47 AM EDT [facility] MCH 32.9(H) 27.0 - 32.0 pcg LAB HEMETOLOGY METHOD 11/18/2024 8:47 AM EDT [facility] MCHC 34.6 32.0 - 37.0 g/dL LAB HEMETOLOGY METHOD 11/18/2024 8:47 AM EDT [facility] RDW 13.7 11.0 - 15.0 % LAB HEMETOLOGY METHOD 11/18/2024 8:47 AM EDT [facility] Platelets 178 130 - 400 K/mcL LAB HEMETOLOGY METHOD 11/18/2024 8:47 AM EDT [facility] MPV 9.8 7.0 - 11.0 FL LAB HEMETOLOGY METHOD 11/18/2024 8:[facility] NRBC 0.0 <1.0 % LAB HEMETOLOGY METHOD 11/18/2024 8:47 AM EDT [facility] NRBC Absolute 0.00 <0.10 K/mcL LAB HEMETOLOGY METHOD 11/18/2024 8:47 AM EDT [facility] Blood Venous blood specimen / Unknown Venipuncture / Unknown 11/18/2024 8:36 AM EDT 11/18/2024 8:42 AM EDT us Raul Torres MD LAB BLOOD ORDERABLES Final Re sult [facility] [address] [place] [address], [place] [phone] * Type and screen (11/18/2024 8:36 AM EDT) ABO Group O 11/18/2024 9:26 AM EDT [facility] Rh Type Positive 11/18/2024 9:26 AM EDT [facility] Antibody Screen Negative 11/18/2024 9:26 AM EDT [facility] Blood Venous blood specimen / Unknown Venipuncture / Unknown 11/18/2024 8:36 AM EDT 11/18/2024 8:42 AM EDT Raul Torres MD LAB BLOOD BANK TEST ORDERABLE S Final Result [facility] [address] [place] [address], * Hepatitis C antibody (04/30/2024 11:38 AM EST) Hepatitis C Antibody Negative Negative LAB CHEMISTRY METHOD 04/30/2024 3:59 PM EST [facility] Blood Venous blood specimen / Unknown Venipuncture / Unknown 04/30/2024 11:38 AM EST 04/30/2024 11:38 AM EST us Cecille Sibley CNM LAB BLOOD ORDERABLES Final Result [facility] [address] [place] [address], [place] [phone] * HIV 1,2 antibody, p24 antigen with reflex to differentiation (04/30/2024 11:38 AM EST) HIV Combo AB/AG Negative Negative LAB CHEMISTRY METHOD 04/30/2024 4:00 PM EST [facility] Blood Venous blood specimen / Unknown Venipuncture / Unknown 04/30/2024 11:38 AM EST 04/30/2024 11:38 AM EST Narrative [facility] - 04/30/2024 4:00 PM EST This assay is a 4th generation assay allowing for earlier detection of HIV infection by detecting the presence of the HIV-1 p24 antigen as well as the traditional antibodies to HIV type 1 (including group O) and type 2. Use of a 4th generation assay is the current CDC recommendation for HIV screening. Cecille Sibley [facility] BLOOD ORDERABLES Final Result [facility] [address] [place] [address], * Cervical Cancer Screening: HPV (12/22/2020) [facility] Cervical Cancer Screening: HPV negative, abstracted Historical Provider MD HEALTH MAINTENANCE Final Result from Last 3 Months or Most Recently Relevant to Health Maintenance Insurance * Guarantor: Daniel Wang Account Type Relation to Patient Date of Phone Billing Address Personal/Family Self 1990 [address] [address] [place] [employer] [facility] Advance Directives * Full Code - Confirmed (Latest Code Status on File) Date Activated Date Inactivated Comments 11/18/2024 8:23 AM 11/20/2024 2:[address] atus was ascertained in the following way: Code status discussion: discussion with patient To update the patient's code status, place a code status order. Do not modify or discontinue any currently active code status orders. Care Teams Etched Circuit Processor Relationship Specialty Start Date End Date eSrgio Obregon MD [address] [place] [address] PCP - General Internal Medicine 02/14/24
--- OUTSIDE RECORDS SUMMARY | 2025-02-12 17:46 | XMS_ITS | Patient Health Record ---
Author Organization [facility] Address [address] [place] [address] Care Team Providers Care Microarray Specialist Name Role Phone SHANIA ALVAREZ Primary Care Provider Alejo Castaneda [phone] Allergies Allergen (clinical drug ingredient) Drug/Non Drug Allergy documented on EMR Reaction Allergy Type Onset Date Status clindamycin Clindamycin Phosphate Unknown Drug Allergy Active Results Component Value Reference Range Notes Ferritin (Not yet reviewed b y provider) Interpretation: Performing Lab:[facility], [address] [place] [phone] Notes/Report: Ferritin 108 10-122 ng/mL Complete Blood Count Auto Di ff (Not yet reviewed by provider) Interpretation: Performing Lab:[facility], [address] [place] [phone] Notes/Report: White Blood Count 7.2 4.8-10.8 X10*3/uL Red Blood Count 4.40 4.20-5.50 X10*6/uL Hemoglobin 14.0 12.0-16.0 g/dl Hematocrit 39.5 37.0-47.0 % Mean Corpuscular Volume 89.8 80.0-98.0 fL Mean Corpuscular Hemoglobin 31.8 27.0-33.0 pg Mean Corpuscular HGB Conc 35.4 31.0-35.0 g/dl Red Cell Distribution Width 11.9 11.0-16.0 % Platelet Count 306 160-400 X10*3/uL Mean Platelet Volume 8.9 9.4-12.3 fL Neutrophils Percent Auto 54.3 45-73 % Imm Gran Pct Auto 0.3 0.0-0.4 % Lymphocytes Percent Auto 29.1 20-40 % Monocytes Percent Auto 9.6 2-11 % Eosinophils Percent Auto 5.7 0-4 % Basophils Percent Auto 1.0 0-2 % NRBC Pct Auto 0.0 0.0-0.2 /100WBC Neutrophils Absolute Auto 3.9 2.0-8.3 x10*3/u L Imm Gran Abs Auto 0.02 0.00-0.03 X10*3/uL Lymphocytes Absolute Auto 2.1 1.2-4.9 X10*3/u L Monocytes Absolute Auto 0.7 0.1-1.2 X10*3/uL Eosinophils Absolute Auto 0.4 0.0-0.4 X10*3/u L Basophils Absolute Auto 0.1 0.0-0.2 X10*3/uL NRBC Abs Auto 0.000 0.0-0.012 X10*3/uL IRON PROFILE (Not yet review ed by provider) Interpretation: Performing Lab:[facility], [address] [place] [phone] Notes/Report: Iron 65 30-160 mcg/dL Total Iron Binding Capacity 294 228-428 mcg/d L Percent Iron Saturation 22 15-50 % Unsaturated Iron Binding 229 Reason For Referral No Information Medications Medication SIG (Take, Route, Fr equency, Duration) Notes Start Date End Date Status Acyclovir 400 mg one tab orally as needed Active Sronyx 0.1-20 MG-MCG 1 tablet Orally Onc e a day; Duration: 28 day(s) Active Immunizations Vaccine Route Administration Date Status Comme nts Influenza Unknown 01/08/2018 Administered Influenza Unknown 02/12/2025 Administered Social History Tobacco Use: Social History Observation Description Date Details (start date - stop date) Never Smoker NA - NA Tobacco Use/Smoking Question Answer Notes Patient is a nonsmoker Section Notes: Nonsmoker; no sig alcohol Nonsmoker; no sig alcohol Problems Problem Type SNOMED Code ICD Code Onset Dates Problem Status W/U Status Risk Notes Problem Rectal bleeding (74561520) Rectal bleeding (K62.5) Active confirmed Problem Hemorrhage of rectum and anus (112403964) Rectal bleed (K62.5) Active confirmed Vital Signs Temperature 97.6 degrees Fahrenheit 02/12/2025 Blood pressure diastolic 01 mm Hg 02/12/2025 Height 67.75 in 02/12/2025 Blood pressure systolic 001 mm Hg 02/12/2025 Weight 161.6 lbs 02/12/2025 BMI 24.75 kg/m2 02/12/2025 Procedures Procedure Date Ordered Date Performed Result Body Sit e COLONOSCOPY 02/12/2025 N/A Encounters Encounter Location Date Provider Diagnosis [facility] [address] [place] [address] 02/12/2025 Alejo Diallo Rectal bleed K62.5 [facility] [address] [place] [address] 03/20/2024 Alejo Imani Assessments Encounter Date Diagnosis (ICD Code) Assessment Notes Treatment Notes Treatment Clinical Notes Section Notes 02/12/2025 Rectal bleed (ICD-10 - K62.5) Try using a Preparation H suppository nightly for 1 week to see if that helps with the bleeding Overall, Daniel appears well. Her current symptoms seem most likely consistent with that of her known internal hemorrhoids. However, given the fact that her symptoms of rectal bleeding are daily with a bowel movement and she does not have any constipation, straining, or rectal discomfort, I would also want to definitively exclude a polyp as a cause of bleeding given that her last colonoscopy was about 6 years ago. I advised her that I think the most likely diagnosis is that of hemorrhoids and would be unlikely to have anything such as a significant polyp or neoplasm, but nonetheless I advised her that would be best to check with a colonoscopy to be definitive. Full consent has been obtained for this, including risks of bleeding and perforation. We did review the rationale for this in regard to colorectal cancer prevention and/or early detection. The procedure will be done with monitored anesthesia care. I did give her the below instructions in regard to checking with the baby's machine group leader in regard to how long she will need to stop breast-feeding in relation to the anesthetic used for the procedure. Daniel says this would not be a problem as she is able to pump and freeze milk in advance. In the meantime I did advise her to start using a Preparation H suppository nightly for at least 7 nights to see if that improves things. I shall also check a CBC and iron profile. Daniel was comfortable with this plan. Thank you again for allowing me to participate in Daniel's care. I shall continue to keep you advised of her progress. Plan Of Treatment Pending Test Test Name Order Date COLONOSCOPY 02/12/2025 IRON + IBC (FE) 02/12/2025 CBC w DIFF 02/12/2025 Complete Blood Count Auto Diff IRON PROFILE 02/12/2025 Ferritin 02/12/2025 Future Test Test Name Order Date COLONOSCOPY 01/15/2019 Next Appt Details Provider Name:Alejo Diallo , 02/24/2025 02:30:00 PM, [address] [place] [address] , [place], [place], [phone], Insurance Providers Payer Name Payer Address Payer Phone Subscriber Number Group Number Insured Name Patient Relationship to Insured Coverage Start Date Coverage End Date [employer] [place] [address] [address] [place] [address] [id number] GOYO DANIEL Self - patient is the insured Medical (General) History Medical History History ICD Code Denies DC,DM,CVA,Lung disease,renal dise ase Colonoscopy in January 2019 for evaluation of rectal bleeding was negative other than a non-adenomatous polyp and some internal hemorrhoids. She had a baby in November 2024. Surgical History Surgery Date(Month/Year)
== END 2025-02-12 14:38 | disposition home or self-care (01) ==
LOC: HO.LAB 14:37
PROVIDERS: PCP Nurse Practitioner Family; Visit Provider Internal Medicine
DX: K62.5 Hemorrhage of anus and rectum (principal)
CPT/HCPCS: 36415; 82728; 83540; 85025

== ENCOUNTER 2025-02-24 10:34 | Day surgery (SDC) | payer OTHER, SELFPAY ==
--- NOTE | 2025-02-20 15:00 | HO.ANESPROP2 ---
Documented by User: Dinora Schafer NP 02/20/25 15:00 HPI - Anesthesia Eval Consult details Narrative: 34yo F for Colonoscopy PMFSH Active Problems Active Problems: All Active Problems (Acute) Microhematuria (Acute) Low hematocrit (Acute) Palpitations (Acute) Elevated BP without diagnosis of hypertension (Acute) Dyslipidemia (Acute) Leukocytosis (Acute) Physical exam (Acute) Diarrhea (Acute) Past Medical History Medical History No known health problems Family History Family History Maternal Grandmother Mental health disorder Surgical History Surgical History No pertinent past surgical history Social History Social History Housing: House Are you a primary animal daycare provider to a significant other at home: No Do you presently have visiting nurse or other home services: No Patient Tobacco Use Status: Never used Tobacco e-Cigarette/Vaping Use: Never Used Second Hand Smoke Exposure: No Use of substances other than those prescribed or required for medical reasons: No Have you been hit, kicked, punched, or otherwise hurt by someone within the past year? 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 Current occupational exposures/hazards: No Cognitive needs: No Hearing needs: No Vision needs: No Meds Allergies Allergy/AdvReac Type Severity Reaction Status Date / Time clindamycin (CLINDAMYCIN) Allergy Intermediate HIVES Verified 03/19/24 18:02 Clindamycin HCl Allergy Unknown hives Uncoded 03/19/24 18:02 Home Medications ?Medication ?Instructions ?Recorded ?Confirmed ?Last Taken ?Type acyclovir 400 mg tablet 400 mg PO DAILY 02/24/21 03/19/24 Unknown History RQM-zixb-AR-omega 3 fatty no.1 27 cap PO 03/19/24 03/19/24 Unknown History mg-1 mg-300 mg capsule Assessment and Plan Assessment Anesthesia Assessment: Chart Reviewed Documented by User: Med Hartley MD 02/24/25 12:42 PMFSH Past Medical History Medical History No known health problems Functional capacity: independent ambulation Family History Family History Maternal Grandmother Mental health disorder Family history of problems with anesthesia: No Surgical History Surgical History No pertinent past surgical history History of Problems with Anesthesia: No Social History Social History Housing: House Are you a primary animal daycare provider to a significant other at home: No Do you presently have visiting nurse or other home services: No Patient Tobacco Use Status: Never used Tobacco e-Cigarette/Vaping Use: Never Used Second Hand Smoke Exposure: No Use of substances other than those prescribed or required for medical reasons: No Have you been hit, kicked, punched, or otherwise hurt by someone within the past year? If so, by whom?: No Are you DNR?: No Advance Directives: No Advance Directives Information Provided: Yes Advance Directives on File: No Patient : No : Yes service: No Current occupational status: employed Current occupation: [employer] Current occupational exposures/hazards: No Cognitive needs: No Hearing needs: No Vision needs: No Meds Allergies Allergy/AdvReac Type Severity Reaction Status Date / Time clindamycin (CLINDAMYCIN) Allergy Intermediate HIVES Verified 03/19/24 18:02 Clindamycin HCl Allergy Unknown hives Uncoded 03/19/24 18:02 Home Medications ?Medication ?Instructions ?Recorded ?Confirmed ?Last Taken ?Type acyclovir 400 mg tablet 400 mg PO DAILY 02/24/21 03/19/24 Unknown History EJO-imut-OO-omega 3 fatty no.1 27 cap PO 03/19/24 03/19/24 Unknown History mg-1 mg-300 mg capsule Exam Exam Date and Time: 02/24/25 Airway Mallampati Class: II TM Dist: >3cm Neck ROM: Full Heart: normal Lungs: normal Other: normal Assessment and Plan Assessment Anesthesia Assessment: Anesthesia Plan Discussed Final Anesthetic Review Family History of Problems with Anesthesia: No History of Problems with Anesthesia: No NPO: Yes ASA Class: II Final Preanesthetic Review: No Changes in Pt Med Stat, Meds/Allgs Chart Reviewed, Consent Obtained/Reviewed and Anes Risks/Benef Reviewed Patient Risk: Low (e) Anesthetic Plan Anesthetic Plan: MAC: Disposition: Standard PACU
[2025-02-24 11:41] VITALS: BMI 24.7
[2025-02-24 11:59] VITALS: BP 108/60; PULSE 74; RESP 16; TEMP 37; O2SAT 100
[2025-02-24] MEDS: Lactated Ringers 1,000 ML 100 ML IVCONT (12:06)
[2025-02-24 12:11] LABS: UPreg QC Valid YES
[2025-02-24 13:58] VITALS: BP 95/54; PULSE 78; RESP 19; TEMP 36.6; O2SAT 97
--- NOTE | 2025-02-24 14:00 | PM.OP ---
Brief Operative Note Date of Service: 02/24/25 Pre-op diagnosis: Rectal bleeding Post-op diagnosis: other (Polyps, Internal hemorrhoids) Procedure: Colonoscopy to the cecum and TI with bx/removal of polyp and cold snare polypectomy at 40cm Surgeon: Alejo Diallo MD Anesthesia: MAC Was an Manager Manufacturing used for this Procedure?: No Estimated blood loss (mL): 2.0 Pathology: other (A. Ascending colon polyp B. Polyp at 40cm) Condition: stable Disposition: PACU
[2025-02-24 14:13] VITALS: BP 103/68; PULSE 69; RESP 14; O2SAT 100
[2025-02-24 14:28] VITALS: BP 98/62; PULSE 62; RESP 15; TEMP 37.2; O2SAT 100
--- NOTE | 2025-02-25 00:21 | OP_ITS ---
DATE OF SERVICE: 02/24/2025 SURGEON: Alejo Diallo MD INDICATIONS: The patient presents for evaluation of intermittent hematochezia. Full consent has been obtained from her for this, including risks of bleeding and perforation. PREOPERATIVE DIAGNOSIS: Rectal bleeding. POSTOPERATIVE DIAGNOSIS: PROCEDURE PERFORMED: ESTIMATED BLOOD LOSS: COMPLICATIONS: ANESTHESIA: Medication used, monitored anesthesia care. ASSISTANTS: SPECIMENS: POSTOPERATIVE DIAGNOSES: Rectal bleeding, colon polyps, occasional diverticulosis, internal hemorrhoids. PROCEDURES PERFORMED: Colonoscopy to cecum and terminal ileum with biopsy and removal of polyp, and cold snare polypectomy. DESCRIPTION OF PROCEDURE: The patient was placed in the left lateral decubitus position. The digital rectal exam revealed some minimal hemorrhoidal tissue. The Olympus video pediatric colonoscope was entered into the rectum and advanced easily to the cecum. Once in the cecum, I did identify normal-appearing cecal pouch with appendiceal orifice and a normal-appearing ileocecal valve. The terminal ileum was cannulated and appeared normal. Scope was withdrawn back in the colon. The entire cecum, and ileocecal valve appeared normal. The scope was slowly withdrawn assessing all mucosal surfaces carefully. Preparation was excellent. In the ascending colon was a flat, approximately 3 or 4 mm polyp, which was biopsied and completely removed with a cold biopsy forceps. At 40 cm was an approximately 6 to 8 mm flat but raised polyp, which was removed by cold snare polypectomy completely and then recovered by suction. The polypectomy site appeared clean, without any sign of residual polyp nor significant bleeding. I did not visualize any other polyps, colitis, nor angiodysplasia. There was an occasional diverticulum in the ascending colon and sigmoid colon. In the rectum, scope was retroflexed visualizing internal hemorrhoids, but no other pathology. The rectal mucosa appeared normal. The scope was straightened and withdrawn from the patient. She tolerated the procedure well and was returned to the recovery area in stable condition. IMPRESSION: 1. Small colon polyps. 2. Occasional diverticulosis. 3. Internal hemorrhoids. PLAN: The results of the pathology will be checked. If the either polyp is a tubular adenoma, I would recommend a followup colonoscopy in 5 years. If both polyps were just hyperplastic, I would recommend a followup colonoscopy in 10 years. She was advised not to use any aspirin nor NSAIDs for 1 week. She was advised to continue to use Preparation-H either cream or suppositories as needed for what appears to have been hemorrhoidal bleeding. She will otherwise see me as needed. MD YESSICA Bowen/LINDA / [phone]
== END 2025-02-24 14:53 | disposition home or self-care (01) ==
PROVIDERS: Nurse Practitioner; PCP Nurse Practitioner Family; Visit Provider Internal Medicine
PROC: 0DJD8ZZ Inspection of Lower Intestinal Tract, Via Natural or Artificial Opening Endoscopic (ICD-10-PCS; CPT 45378; principal; 2025-02-24 11:30)
DX: K62.5 Hemorrhage of anus and rectum (principal); D12.2 Benign neoplasm of ascending colon; D12.5 Benign neoplasm of sigmoid colon; K57.30 Diverticulosis of large intestine without perforation or abscess without bleeding; K64.8 Other hemorrhoids; Z79.899 Other long term (current) drug therapy; Z88.1 Allergy status to other antibiotic agents
CPT/HCPCS: 45385; 45380; 81025; 88305; J2003; J2704; J3010